=== PATIENT | male | born 1980 | race Hispanic/Latino ===

== ENCOUNTER 2017-12-24 09:29 | Inpatient (IN) | payer SELFPAY ==
[2017-12-24] MEDS ORDERED: Ondansetron ODT 4 MG TAB ONE (09:54)
[2017-12-24] MEDS ORDERED: Acetaminophen 500 MG TAB ONE (09:54)
[2017-12-24 09:59] LABS: Bilirubin Negative (Negative); Blood, Urine Negative (Negative); Clarity CLEAR (Clear); Glucose, Urine (Dipstick) >=1000 mg/dL (Negative); Leukocyte Negative (Negative); Nitrite Negative (Negative); Protein, Urine (Dipstick) Trace mg/dL (Neg-Trace); Specific Gravity, Urine 1.026 (1.002-1.036)
--- NOTE | 2017-12-24 10:08 | RAD ---
SINGLE VIEW OF THE CHEST: Comparison: None. History: Chest pain and fever for three days. FINDINGS: Single view of the chest shows a normal sized cardiomediastinal silhouette. There is no evidence of c onsolidation, mass, or pleural effusion. The bones are unremarkable. IMPRESSION: No evidence of acute cardiopulmonary disease. POS: [facility]
[2017-12-24 10:10] LABS: #Lymphocytes 0.5 thou/uL (1.20-3.40); #Monocytes 0.7 thou/uL (0.11-0.59); #Neutrophils 7.4 thou/uL (1.40-6.50); %Eosinophils 0.1 % (0.0-10.0); %Lymphocytes 5.6 % (21.0-51.0); %Monocytes 7.8 % (0.0-10.0); %Neutrophils 86.5 % (42.0-75.0); Hemoglobin 14.1 g/dL (14.0-18.0); Mean Corpuscular Hemoglobin 32.8 pg (27.0-31.0); Mean Corpuscular Volume 93.9 fL (78.0-98.0); Mean Platelet Volume 8.3 fL (7.4-10.4); Platelet Count 154 thou/uL (130-400); RBC Distribution Width 11.4 % (11.5-14.5); White Blood Cell (WBC) Count 8.5 thou/uL (4.8-10.8)
[2017-12-24 10:28] LABS: ALT (SGPT) 18 U/L (8-55); AST (SGOT) 20 U/L (5-34); Albumin 4.2 g/dL (3.5-5.0); Alkaline Phosphatase 106 U/L (40-150); Anion Gap 17 mmol/L (10-20); BUN (Urea Nitrogen) 4 mg/dL (8.9-20.6); Bilirubin, Total 0.8 mg/dL (0.2-1.2); Calc. Creatinine Clearance 0 mL/min (70-130); Calcium 9.7 mg/dL (7.8-10.44); Carbon Dioxide 24 mmol/L (22-29); Chloride 91 mmol/L (98-107); Estimated GFR-MDRD Greater than 90; Globulin 3.7 g/dL (2.4-3.5); Glucose 395 mg/dL (70-105); Potassium 3.6 mmol/L (3.5-5.1); Protein, Total 7.9 g/dL (6.0-8.3); Sodium 128 mmol/L (136-145)
--- NOTE | 2017-12-24 11:25 | CT ---
CT ABDOMEN AND PELVIS WITH CONTRAST: Date: 12/24/17 HISTORY: Lower abdominal pain. Fever. COMPARISON: CT abdomen and pelvis dated 06/11/11. FINDINGS: Lung bases are clear. No pericardial effusion. Mild bilateral gynecomastia. There is patchy enhancement of the left and right kidney suggesting pyelonephritis. There is also ricci e mild hyperenhancement of the left renal pelvis. There is early contrast excretion in the left renal collecting system. No dilated loops of large or small bowel. The appendix is felt to be visualized and appears normal. Aortoiliac contour is nonaneurysmal. Mild hyperenhancement of the mucosa of the urinary bladder. The pancreas is unremarkable. Liver and spleen are normal. IMPRESSION: 1. Patchy enhancement of both kidneys with mild hyperenhancement of the renal collecting systems sug gesting bilateral pyelonephritis. Recommend correlation with urinalysis. 2. Inferior right pole renal cyst, slightly enlarging from the comparison examination. 3. Normal appendix. POS: [facility]
[2017-12-24] MEDS ORDERED: ISOVUE-370 76%-LOCM 1 ML ONE (11:57)
[2017-12-24 13:55] LABS: Lactic Acid 1.8 mmol/L (0.5-2.2)
[2017-12-24] MEDS ORDERED: Dexamethasone 10 MG/ML VIAL ONE (14:26)
[2017-12-24] MEDS ORDERED: Ketorolac Tromethamine 30 MG/ML VIAL ONE (14:26)
[2017-12-24] MEDS ORDERED: Dicyclomine 20 MG TAB ONE (14:54)
[2017-12-24] MEDS ORDERED: AMOXicillin 250 MG CAP ONE (15:09)
[2017-12-24] MEDS ORDERED: cefTRIAXone\\ROCEPHIN 2 GM VIAL ONE (15:46)
[2017-12-24 16:00] LABS: Amphetamine Not Detected (NotDetected); Barbiturates Screen Not Detected (NotDetected); Benzodiazepine Screen Not Detected (NotDetected); Cocaine Metabolite Screen Not Detected (NotDetected); Medtox Control Line Valid? VALID (VALID); Medtox Reader # READER 1; Methadone Not Detected (NotDetected); Methamphetamine Not Detected (NotDetected); Opiate Screen Detected (NotDetected); Oxycodone Screen Not Detected (NotDetected); Phencyclidine (PCP) Not Detected (NotDetected); THC/Cannabinoid Screen Not Detected (NotDetected); Tricyclic Screen Not Detected (NotDetected)
[2017-12-24] MEDS ORDERED: hydrALAZINE 20 MG/ML VIAL SLOW IVP PRN (16:10)
[2017-12-24] MEDS ORDERED: Ondansetron HCl/PF 4 MG/2 ML Vial IVP PRN (16:10)
[2017-12-24] MEDS ORDERED: Senokot 8.6 MG TAB PO PRN (16:10)
[2017-12-24] MEDS ORDERED: Dextrose 50% Abboject 50 ML SYRINGE SLOW IVP PRN (16:10)
[2017-12-24] MEDS ORDERED: Nitroglycerin 0.4 MG TAB (25 Tab Bottle) SL PRN (16:10)
[2017-12-24] MEDS ORDERED: traMADol HCl 50 MG TAB PO PRN (16:10)
[2017-12-24] MEDS ORDERED: Bisacodyl 5 MG TAB PO PRN (16:10)
[2017-12-24] MEDS ORDERED: Acetaminophen 325 MG TAB PO PRN (16:10)
[2017-12-24] MEDS ORDERED: Diabetic Tussin 200 MG/10 ML UDCUP PO PRN (16:10)
[2017-12-24] MEDS ORDERED: Benzonatate 100 MG CAP PO PRN (16:10)
[2017-12-24] MEDS ORDERED: Calcium Carbonate 500 MG ChewTAB PO PRN (16:10)
[2017-12-24] MEDS ORDERED: cloNIDine 0.1 MG TAB PO PRN (16:10)
[2017-12-24] MEDS ORDERED: Loratadine 10 MG TAB PO PRN (16:10)
[2017-12-24] MEDS ORDERED: Dextrose 5% in Water 1,000 ML IV PRN (16:10)
[2017-12-24] MEDS ORDERED: Mag-Al 1200 mg/1200 mg/30 ML UDCUP PO PRN (16:10)
[2017-12-24 17:22] LABS: Hemoglobin A1c 8.2 % (4.0-6.0)
--- NOTE | 2017-12-24 18:38 | HP ---
DATE OF ADMISSION: 12/24/2017 PRIMARY CARE PHYSICIAN: None. CHIEF COMPLAINT: Fever and abdominal pain. HISTORY OF PRESENT ILLNESS: Mr. Dudley is a 37-year-old male with past medical history of diabetes dena litus who is noncompliant, presented to the ER with the above-mentioned complaints. History is mainl y obtained by the patient himself and case has been discussed with admitting ER physician, Dr. Arvind conti. Electronic medical records have been reviewed. Mr. Dudley reports that he has been feeling ill for the last 3 days. He has been having low-grade lowe r abdominal pain for 3 days which is getting worse. He also noticed fever up to 100.2 or 100.3 at [facility] with associated chills and sweating. He denies any nausea, vomiting or diarrhea. He denies any h ematochezia or melena. He has noticed some foul smell to his urine, but denies any back pain. He de nies any sore throat, rhinorrhea. He has no sick contacts. His and kids are all healthy withou t symptoms. He denies any new medications. Mr. Dudley, otherwise, is in excellent health. He does not take any medication for his diabetes and christopher s not seen a physician in multiple years. He denies any recent bug bites or any boils or sores on hi s skin either. Upon presentation to the emergency room, he was found to be febrile and tachycardic. His T-max was a s high as 100.6. His heart rate ranged anywhere from 104-117. Other than that, he was hemodynamical ly stable. His workup was extensive and thorough. His CBC does not show any elevated WBC count, but he has left shift with neutrophils of 86%. His serum chemistry shows sodium of 128 for blood sugar of 395. Lactic acid x2 was normal. Liver enzymes unremarkable. His urinalysis shows glucosuria and urobilinogen, but otherwise unremarkable. His urine drug screen is only positive for opiates, which he has already received in the emergency room. He underwent a chest x-ray, which did not show any e vidence of pneumonia. A CT scan of the abdomen and pelvis with contrast was done which suggests find ings of bilateral pyelonephritis. He has received 3 liters of IV fluids and remained tachycardic in the ER and is now being admitted for possible sepsis and acute pyelonephritis. Of importance to note is that he actually had throat culture done, which was positive for group A streptococcus. His Infl uenza testing was negative. PAST MEDICAL HISTORY: Diabetes mellitus. PAST SURGICAL HISTORY: Reviewed with the patient and none. PSYCHIATRIC HISTORY: None. No anxiety or depression. SOCIAL HISTORY: He drinks alcohol occasionally. He denies any drug abuse or tobacco abuse. ALLERGIES: No known medication allergies. MEDICATIONS: None. FAMILY HISTORY: Significant for diabetes in his mother. He reports that his mother also had a heart attack. His father 3 months ago and had diabetes and some sort of cancer. Some uncles also have diabetes. REVIEW OF SYSTEMS: A 12-point review of systems is done and is negative except for those mentioned i n the history and physical. LABORATORY DATA: His CBC shows WBCs at 8.5 with 86% neutrophils, hemoglobin 14.1, platelet count of 154. Serum chemistry: Sodium 128, chloride 91, blood sugar 395, lactic acid 2.1 with repeat lactic acid of 1.8. Liver enzymes unremarkable. Urinalysis show glucosuria, otherwise unremarkable. Urine drug screen positive for opiates, otherwise negative. Chest x-ray by my review does not have any ev idence of infiltrate or edema. CT scan of the abdomen and pelvis shows bilateral pyelonephritis. Ot herwise, unremarkable. A 12-lead EKG by my review shows normal sinus rhythm. PHYSICAL EXAMINATION: VITAL SIGNS: Upon presentation, blood pressure 135/82, temperature 99.7, respirations 24, heart rate 106, saturating 96% on room air. GENERAL: He is diaphoretic, otherwise in no acute distress. Appears well-built and well-nourished. Awake, alert, oriented x3. HEENT: Very minimal erythema of the oropharynx is noticed. No exudate otherwise. Head is normoceph alic, atraumatic. Pupils equal, reactive to light and accommodation. NECK: Supple without any lymphadenopathy, JVD or bruit. CHEST: Clear to auscultation without any wheezing, rales, rhonchi. Rhythm is regular without any mu rmur, rubs or gallops. ABDOMEN: Soft, nontender, nondistended, positive bowel sound. There is no CVA tenderness bilaterall y. EXTREMITIES: Free of any cyanosis, clubbing, or edema. NEUROLOGIC: Nonfocal. SKIN: Free of any rashes or bruises. Feel warm and dry to touch. PSYCHIATRIC: Normal affect. IMPRESSION AND PLAN: 1. Sepsis. It is quite puzzling as to what is the clear etiology behind his presentation. The mir ent has reported pyelonephritis on the CT scan with clear urinalysis. He also has a group A Streptoc occal swab positive from his throat without any clinical sign of the infection or any sick contacts. There is a slight possibility that he has a group Streptococcal bacteremia. He might have 2 separat e infections going on. In any case, he will be treated empirically with IV antibiotic. We will add clindamycin for group A Streptococcus and Rocephin for pyelonephritis another urinary pathogens. We will request consultation with Infectious Disease specialist as well. 2. Hyponatremia, likely spurious hyponatremia because of hyperglycemia. We will start him on insuli n sliding scale and collect blood sugars. He is also resuscitated with IV fluids. If this is eviden ce of dehydration. We will monitor sodium numbers closely. 3. Uncontrolled diabetes mellitus. The patient has been counseled. He will be started on insulin s liding scale with frequent Accu-Cheks. We will check a hemoglobin A1c. He will benefit from startin g on oral hypoglycemics with or without insulin prior to discharge. 4. Pyelonephritis. 5. Group A streptococcal pharyngitis. Continue clindamycin. 6. Abdominal pain. We will check his stools for Clostridium difficile and send for culture and path ogen studies as well. The patient denies any risk factors for HIV. 7. Deep venous thrombosis and gastrointestinal prophylaxis. 8. P.r.n. medication orders. DISPOSITION: Mr. Dudley is currently being admitted to telemetry unit for sepsis and pyelonephritis. Estimated length of stay is at least 2-3 midnight. Further management will depend upon his clinical course.
[2017-12-24] MEDS: Clindamycin/D5W 300 MG/50 ML BAG IVPB SCH (21:57)
[2017-12-24] MEDS: Sodium Chloride 0.9% 1,000 ML IV SCH (21:57)
[2017-12-24] MEDS: Famotidine 20 MG TAB PO SCH (21:57)
[2017-12-24] MEDS: HumaLOG 300 UNITS/3 ML VIAL SC PRN (21:58)
[2017-12-24 22:07] VITALS: BMI 25.4
[2017-12-25] MEDS: Clindamycin/D5W 300 MG/50 ML BAG IVPB SCH ×5 (01:23→23:29)
[2017-12-25 05:14] LABS: #Lymphocytes 0.5 thou/uL (1.20-3.40); #Monocytes 0.6 thou/uL (0.11-0.59); #Neutrophils 6.1 thou/uL (1.40-6.50); %Eosinophils 0.1 % (0.0-10.0); %Lymphocytes 7.5 % (21.0-51.0); %Monocytes 8.1 % (0.0-10.0); %Neutrophils 84.3 % (42.0-75.0); Hemoglobin 13.6 g/dL (14.0-18.0); Mean Corpuscular HGB CONC 36.4 g/dL (32.0-36.0); Mean Corpuscular Hemoglobin 33.8 pg (27.0-31.0); Mean Corpuscular Volume 92.9 fL (78.0-98.0); Mean Platelet Volume 8.3 fL (7.4-10.4); Platelet Count 136 thou/uL (130-400); RBC Distribution Width 11.2 % (11.5-14.5); Red Blood Cell (RBC) Count 4.02 mill/uL (4.70-6.10); White Blood Cell (WBC) Count 7.2 thou/uL (4.8-10.8)
[2017-12-25 05:30] LABS: Anion Gap 15 mmol/L (10-20); BUN (Urea Nitrogen) 10 mg/dL (8.9-20.6); Calc. Creatinine Clearance 147 mL/min (70-130); Carbon Dioxide 23 mmol/L (22-29); Chloride 100 mmol/L (98-107); Estimated GFR-MDRD Greater than 90; Glucose 286 mg/dL (70-105); Potassium 3.8 mmol/L (3.5-5.1); Sodium 134 mmol/L (136-145)
[2017-12-25] MEDS ORDERED: Vancomycin HCl 1 GM in Premix Bag 1 BAG IVPB SCH (07:00)
[2017-12-25] MEDS: Sodium Chloride 0.9% 1,000 ML IV SCH ×3 (07:04→20:22)
[2017-12-25] MEDS: Famotidine 20 MG TAB PO SCH ×2 (08:05→20:22)
[2017-12-25] MEDS: cefTRIAXone\\ROCEPHIN 1 GM in Sodium Chloride 0.9% 100 ML IVPB SCH (08:06)
[2017-12-25] MEDS: Saccharomyces boulardii 250 MG CAP PO SCH (08:06)
[2017-12-25] MEDS: Enoxaparin Sodium 40 MG/0.4 ML SYRINGE SC SCH (08:07)
[2017-12-25] MEDS: HumaLOG 300 UNITS/3 ML VIAL SC PRN ×4 (08:08→20:23)
[2017-12-25] MEDS: Insulin NPH/Reg Insulin Hm 300 UNITS/3 ML VIAL SC SCH ×2 (12:39→18:19)
--- NOTE | 2017-12-25 13:20 | PDOC.PN ---
- Subjective Encounter Start Date: 12/25/17 Encounter Start Time: 13:17 Subjective: feels much better. good appetite,ambulatory -: no more AP.no N?V?D.no CP/SOB/Cough - Objective MAR Reviewed: Yes Vital Signs & Weight: Vital Signs (12 hours) Temp Pulse Resp BP BP Pulse Ox 12/25/17 12:16 99.1 F 113 H 16 104/55 L 97 12/25/17 08:02 98.1 F 91 16 106/70 98 12/25/17 08:00 98.1 F 91 16 98 12/25/17 03:30 97.7 F 80 12 122/81 100 Weight Weight 148 lb 3.2 oz Result Diagrams: 12/25/17 04:32 12/25/17 04:32 Additional Labs: Accuchecks 12/25/17 12/25/17 12/24/17 10:54 05:24 20:36 POC Glucose 285 H 328 H 450 H Microbiology 12/25/17 01:40 Stool C. difficile GDH Antigen & Toxins - Final 12/24/17 12:45 Tonsil - Pending Group A Streptococcus Screen (MARYAM) - Final 12/24/17 12:45 Nasopharyngeal swab Influenza Types A,B Direct EIA - Final 12/24/17 10:01 Venous blood - Left Arm Blood Culture - Preliminary Gram Negative Demetri 12/24/17 09:57 Venous blood - Right Arm Blood Culture - Preliminary Escherichia coli 12/24/17 09:38 Urine voided Urine Culture - Preliminary Presumptive Escherichia coli Phys Exam - Physical Examination Constitutional: NAD HEENT: PERRLA, moist MMs, sclera anicteric, oral pharynx no lesions Neck: no nodes, no JVD, supple, full ROM Respiratory: no wheezing, no rales, no rhonchi, clear to auscultation bilateral Cardiovascular: RRR, no significant murmur, no rub Gastrointestinal: soft, non-tender, no distention Musculoskeletal: no edema, pulses present Neurological: non-focal, normal sensation, moves all 4 limbs Psychiatric: normal affect, A&O x 3 Skin: no rash Dx/Plan (1) Sepsis Code(s): A41.9 - SEPSIS, UNSPECIFIED ORGANISM Status: Acute (2) E coli bacteremia Code(s): R78.81 - BACTEREMIA Status: Acute (3) E. coli UTI Code(s): N39.0 - URINARY TRACT INFECTION, SITE NOT SPECIFIED; B96.20 - UNSP ESCHERICHIA COLI THE CAUSE OF DISEASES CLASSD ELSWHR Status: Acute (4) Group A streptococcal infection Code(s): B95.0 - STREPTOCOCCUS, GROUP A, CAUSING DISEASES CLASSD ELSWHR Status : Acute (5) Hyponatremia Code(s): E87.1 - HYPO-OSMOLALITY AND HYPONATREMIA Status: Acute Comment: improving with improvement of hyperglycemia (6) Non-compliance Code(s): Z91.19 - PATIENT'S NONCOMPLIANCE W OTH MEDICAL TREATMENT AND REGIMEN Status: Chronic (7) Uncontrolled type 2 diabetes mellitus Code(s): E11.65 - TYPE 2 DIABETES MELLITUS WITH HYPERGLYCEMIA Status: Chronic 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 -: Educated extensively about the need for Diabetes & med compliance * .will start on Insulin and Glimiperide and monitor response * Ok to transfer to medical. * am labs Review of Systems - Review of Systems Constitutional: negative: fever, chills, sweats, weakness, malaise, other ENT: negative: Ear Pain, Ear Discharge, Nose Pain, Nose Discharge, Nose Congestion, Mouth Pain, Mouth Swelling, Throat Pain, Throat Swelling, Other Respiratory: negative: Cough, Dry, Shortness of Breath, Hemoptysis, SOB with Excertion, Pleuritic Pain, Sputum, Wheezing Cardiovascular: negative: chest pain, palpitations, orthopnea, paroxysmal nocturnal dyspnea, edema, light headedness, other Gastrointestinal: negative: Nausea, Vomiting, Abdominal Pain, Diarrhea, Constipation, Melena, Hematochezia, Other Genitourinary: negative: Dysuria, Frequency, Incontinence, Hematuria, Retention , Other Musculoskeletal: negative: Neck Pain, Shoulder Pain, Arm Pain, Back Pain, Hand Pain, Leg Pain, Foot Pain, Other Skin: negative: Rash, Lesions, Kian, Bruising, Other Neurological: negative: Weakness, Numbness, Incoordination, Change in Speech, Confusion, Seizures, Other - Medications/Allergies Allergies/Adverse Reactions: Allergies Allergy/AdvReac Type Severity Reaction Status Date / Time No Known Allergies Allergy Verified 12/24/17 20:15 Medications: Current Medications Acetaminophen (Tylenol) 650 mg PO Q4H PRN PRN Reason: Headache/Fever or Pain Hydrocodone Bitart/Acetaminophen ([place] 5/325) 1 tab PO Q4H PRN PRN Reason: Moderate Pain (4-6) Al Hydroxide/Mg Hydroxide (Maalox) 30 ml PO Q6H PRN PRN Reason: Heartburn or Indigestion Benzonatate (Tessalon) 100 mg PO Q4H PRN PRN Reason: Cough Bisacodyl (Dulcolax) 10 mg PO DAILYPRN PRN PRN Reason: Constipation Calcium Carbonate (Tums) 1,000 mg PO Q4H PRN PRN Reason: Heartburn or Indigestion Clindamycin Phosphate/Dextrose (Cleocin) 300 mg IVPB Q6HR [facility] Last Admin: 12/25/17 12:20 Dose: 300 mg Clonidine (Catapres) 0.1 mg PO Q4H PRN PRN Reason: Systolic BP > 160 Dextrose/Water (Dextrose 50%) 25 gm SLOW IVP PRN PRN PRN Reason: Hypoglycemia Enoxaparin Sodium (Lovenox) 40 mg SC 0900 [facility] Last Admin: 12/25/17 08:07 Dose: Not Given Famotidine (Pepcid) 20 mg PO BID [facility] Last Admin: 12/25/17 08:05 Dose: 20 mg Glimepiride (Amaryl) 2 mg PO QAM-[facility] Glucagon (Glucagon) 1 mg IM PRN PRN PRN Reason: Hypoglycemia Guaifenesin (Robitussin Sf) 200 mg PO Q4H PRN PRN Reason: Cough Hydralazine HCl (Apresoline) 10 mg SLOW IVP Q4H PRN PRN Reason: Systolic BP > 170 Dextrose/Water (D5w) 1,000 mls @ 0 mls/hr IV .Q0M PRN; As Directed PRN Reason: Hypoglycemia Ceftriaxone Sodium 1 gm/ (Sodium Chloride) 100 mls @ 200 mls/hr IVPB Q24HR [facility] Last Admin: 12/25/17 08:06 Dose: 100 mls Sodium Chloride (Normal Saline 0.9%) 1,000 mls @ 100 mls/hr IV .Q10H [facility] Last Admin: 12/25/17 08:07 Dose: 1,000 mls Insulin Human Isoph/Insulin Regular (Humulin 70/30) 10 units SC [facility] Last Admin: 12/25/17 12:39 Dose: 10 unit Insulin Human Lispro (Humalog) 0 units SC .MODERATE SLIDING SC PRN PRN Reason: Moderate Correctional Scale Last Admin: 12/25/17 12:38 Dose: 6 unit Insulin Human Lispro (Humalog) 0 units SC .BEDTIME SLIDING SC PRN PRN Reason: Bedtime Correctional Scale Last Admin: 12/24/17 21:58 Dose: 5 unit Loratadine (Claritin) 10 mg PO DAILYPRN PRN PRN Reason: Sinus Symptoms Nitroglycerin (Nitrostat) 0.4 mg SL Q5MIN PRN PRN Reason: Chest Pain Ondansetron HCl (Zofran) 4 mg IVP Q6H PRN PRN Reason: Nausea/Vomiting Saccharomyces Boulardii (Florastor) 250 mg PO DAILY [facility] Last Admin: 12/25/17 08:06 Dose: 250 mg Senna (Senokot) 2 tab PO HSPRN PRN PRN Reason: Constipation Sodium Chloride (Flush - Normal Saline) 10 ml IVF Q12HR [facility] Last Admin: 12/25/17 09:37 Dose: Not Given Sodium Chloride (Flush - Normal Saline) 10 ml IVF PRN PRN PRN Reason: Saline Flush Tramadol HCl (Ultram) 50 mg PO Q4H PRN PRN Reason: Moderate Pain (4-6)
[2017-12-26] MEDS: HYDROcodone/Acetaminophen 5/325 mg Tablet PO PRN ×2 (03:39→20:29)
[2017-12-26] MEDS: Clindamycin/D5W 300 MG/50 ML BAG IVPB SCH ×2 (05:46→12:46)
[2017-12-26] MEDS: HumaLOG 300 UNITS/3 ML VIAL SC PRN ×2 (05:48→12:40)
[2017-12-26] MEDS: cefTRIAXone\\ROCEPHIN 1 GM in Sodium Chloride 0.9% 100 ML IVPB SCH (06:25)
[2017-12-26] MEDS: Insulin NPH/Reg Insulin Hm 300 UNITS/3 ML VIAL SC SCH ×3 (08:57→16:49)
[2017-12-26] MEDS: Saccharomyces boulardii 250 MG CAP PO SCH (08:58)
[2017-12-26] MEDS: Famotidine 20 MG TAB PO SCH ×2 (08:58→20:29)
[2017-12-26] MEDS: Enoxaparin Sodium 40 MG/0.4 ML SYRINGE SC SCH (08:58)
[2017-12-26] MEDS: Glimepiride 2 MG TAB PO SCH (10:05)
[2017-12-26] MEDS: Sodium Chloride 0.9% 1,000 ML IV SCH (10:07)
[2017-12-26 10:55] LABS: HIV (1/2) Antibody/Antigen Non-Reactive (NonReactive); HIV 1/2 INDEX 0.08 S/CO (<1.00)
[2017-12-26] MEDS ORDERED: Clindamycin/D5W 300 MG in Premix Bag 1 BAG IVPB SCH (12:00)
--- NOTE | 2017-12-26 13:43 | PDOC.PN ---
- Subjective Encounter Start Date: 12/26/17 Encounter Start Time: 13:42 Subjective: feels better but somewhat dizzy.no F/C/Cough/SOB - Objective MAR Reviewed: Yes Vital Signs & Weight: Vital Signs (12 hours) Temp Pulse Resp BP Pulse Ox 12/26/17 08:00 99.3 F 100 20 97 12/26/17 07:13 99.3 F 100 20 134/84 97 Weight Weight 148 lb 3.2 oz I&O: 12/25/17 12/26/17 12/27/17 06:59 06:59 06:59 Intake Total 3113 Balance 3113 Result Diagrams: 12/25/17 04:32 12/25/17 04:32 Additional Labs: Accuchecks 12/26/17 12/26/17 12/25/17 11:15 05:44 19:32 POC Glucose 270 H 171 H 308 H 12/25/17 16:46 POC Glucose 339 H Microbiology 12/25/17 01:40 Stool C. difficile GDH Antigen & Toxins - Final 12/24/17 12:45 Tonsil - Pending Group A Streptococcus Screen (MARYAM) - Final 12/24/17 12:45 Nasopharyngeal swab Influenza Types A,B Direct EIA - Final 12/24/17 10:01 Venous blood - Left Arm Blood Culture - Preliminary Escherichia coli 12/24/17 09:57 Venous blood - Right Arm Blood Culture - Preliminary Escherichia coli 12/24/17 09:38 Urine voided Urine Culture - Preliminary Escherichia coli labs reviewed Phys Exam - Physical Examination Constitutional: NAD HEENT: PERRLA, moist MMs, sclera anicteric, oral pharynx no lesions Neck: no nodes, no JVD, supple, full ROM Respiratory: no wheezing, no rales, no rhonchi, clear to auscultation bilateral Cardiovascular: RRR, no significant murmur, no rub Gastrointestinal: soft, non-tender, no distention, positive bowel sounds Musculoskeletal: no edema, pulses present Neurological: non-focal, normal sensation, moves all 4 limbs Psychiatric: normal affect, A&O x 3 Skin: no rash Dx/Plan (1) Sepsis Code(s): A41.9 - SEPSIS, UNSPECIFIED ORGANISM Status: Acute (2) E coli bacteremia Code(s): R78.81 - BACTEREMIA Status: Acute (3) E. coli UTI Code(s): N39.0 - URINARY TRACT INFECTION, SITE NOT SPECIFIED; B96.20 - UNSP ESCHERICHIA COLI THE CAUSE OF DISEASES CLASSD ELSWHR Status: Acute (4) Group A streptococcal infection Code(s): B95.0 - STREPTOCOCCUS, GROUP A, CAUSING DISEASES CLASSD ELSWHR Status : Acute (5) Hyponatremia Code(s): E87.1 - HYPO-OSMOLALITY AND HYPONATREMIA Status: Acute Comment: improving with improvement of hyperglycemia (6) Non-compliance Code(s): Z91.19 - PATIENT'S NONCOMPLIANCE W OTH MEDICAL TREATMENT AND REGIMEN Status: Chronic (7) Uncontrolled type 2 diabetes mellitus Code(s): E11.65 - TYPE 2 DIABETES MELLITUS WITH HYPERGLYCEMIA Status: Chronic Qualifiers: 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 -: cont Rocephin for E.coli & Clindamycin for GAS.ID consulted -: blood sugars still high.cont 70/30 ,SSI,Glimeperide -: am labs. -: will check HIV given severity of infection * . Review of Systems - Review of Systems Constitutional: weakness. negative: fever, chills, sweats, malaise, other Respiratory: negative: Cough, Dry, Shortness of Breath, Hemoptysis, SOB with Excertion, Pleuritic Pain, Sputum, Wheezing Cardiovascular: light headedness. negative: chest pain, palpitations, orthopnea , paroxysmal nocturnal dyspnea, edema, other Gastrointestinal: negative: Nausea, Vomiting, Abdominal Pain, Diarrhea, Constipation, Melena, Hematochezia, Other Genitourinary: negative: Dysuria, Frequency, Incontinence, Hematuria, Retention , Other Musculoskeletal: negative: Neck Pain, Shoulder Pain, Arm Pain, Back Pain, Hand Pain, Leg Pain, Foot Pain, Other Skin: negative: Rash, Lesions, Kian, Bruising, Other Neurological: negative: Weakness, Numbness, Incoordination, Change in Speech, Confusion, Seizures, Other - Medications/Allergies Allergies/Adverse Reactions: Allergies Allergy/AdvReac Type Severity Reaction Status Date / Time No Known Allergies Allergy Verified 12/24/17 20:15 Medications: Current Medications Acetaminophen (Tylenol) 650 mg PO Q4H PRN PRN Reason: Headache/Fever or Pain Last Admin: 12/25/17 23:36 Dose: 650 mg Hydrocodone Bitart/Acetaminophen ([place] 5/325) 1 tab PO Q4H PRN PRN Reason: Moderate Pain (4-6) Last Admin: 12/26/17 03:39 Dose: 1 tab Al Hydroxide/Mg Hydroxide (Maalox) 30 ml PO Q6H PRN PRN Reason: Heartburn or Indigestion Benzonatate (Tessalon) 100 mg PO Q4H PRN PRN Reason: Cough Bisacodyl (Dulcolax) 10 mg PO DAILYPRN PRN PRN Reason: Constipation Calcium Carbonate (Tums) 1,000 mg PO Q4H PRN PRN Reason: Heartburn or Indigestion Clonidine (Catapres) 0.1 mg PO Q4H PRN PRN Reason: Systolic BP > 160 Dextrose/Water (Dextrose 50%) 25 gm SLOW IVP PRN PRN PRN Reason: Hypoglycemia Enoxaparin Sodium (Lovenox) 40 mg SC 0900 [facility] Last Admin: 12/26/17 08:58 Dose: 40 mg Famotidine (Pepcid) 20 mg PO BID [facility] Last Admin: 12/26/17 08:58 Dose: 20 mg Glimepiride (Amaryl) 2 mg PO QAM-WM [facility] Last Admin: 12/26/17 10:05 Dose: 2 mg Glucagon (Glucagon) 1 mg IM PRN PRN PRN Reason: Hypoglycemia Guaifenesin (Robitussin Sf) 200 mg PO Q4H PRN PRN Reason: Cough Hydralazine HCl (Apresoline) 10 mg SLOW IVP Q4H PRN PRN Reason: Systolic BP > 170 Dextrose/Water (D5w) 1,000 mls @ 0 mls/hr IV .Q0M PRN; As Directed PRN Reason: Hypoglycemia Ceftriaxone Sodium 1 gm/ (Sodium Chloride) 100 mls @ 200 mls/hr IVPB Q24HR [facility] Last Admin: 12/26/17 06:25 Dose: 100 mls Clindamycin Phosphate/Dextrose (300 mg/ Device) 50 mls @ 100 mls/hr IVPB Q6HR [facility] Last Admin: 12/26/17 12:39 Dose: 50 mls Insulin Human Isoph/Insulin Regular (Humulin 70/30) 10 units SC AC [facility] Last Admin: 12/26/17 12:39 Dose: 10 unit Insulin Human Lispro (Humalog) 0 units SC .MODERATE SLIDING SC PRN PRN Reason: Moderate Correctional Scale Last Admin: 12/26/17 12:40 Dose: 6 unit Insulin Human Lispro (Humalog) 0 units SC .BEDTIME SLIDING SC PRN PRN Reason: Bedtime Correctional Scale Last Admin: 12/25/17 20:23 Dose: 4 unit Loratadine (Claritin) 10 mg PO DAILYPRN PRN PRN Reason: Sinus Symptoms Nitroglycerin (Nitrostat) 0.4 mg SL Q5MIN PRN PRN Reason: Chest Pain Ondansetron HCl (Zofran) 4 mg IVP Q6H PRN PRN Reason: Nausea/Vomiting Saccharomyces Boulardii (Florastor) 250 mg PO DAILY [facility] Last Admin: 12/26/17 08:58 Dose: 250 mg Senna (Senokot) 2 tab PO HSPRN PRN PRN Reason: Constipation Sodium Chloride (Flush - Normal Saline) 10 ml IVF Q12HR [facility] Last Admin: 12/26/17 08:59 Dose: Not Given Sodium Chloride (Flush - Normal Saline) 10 ml IVF PRN PRN PRN Reason: Saline Flush Tramadol HCl (Ultram) 50 mg PO Q4H PRN PRN Reason: Moderate Pain (4-6)
[2017-12-26 15:44] LABS: HBCM Index 0.09 S/CO (0-0.79); HBSAg Index 0.17 S/CO (0-0.99); Hep A IgM AB Non-Reactive (NonReactive); Hep A IgM S/CO 0.14 S/CO (0-0.79); Hep B Surf Ag Non-Reactive S/CO (NonReactive); Hep C IgG Ab Non-Reactive (NonReactive); Hep C Index 0.23 S/CO (0-0.79); Hepatitis B Core IGM Abs Non-Reactive (NonReactive)
[2017-12-26] MEDS: Ciprofloxacin 500 MG TAB PO SCH (20:29)
--- NOTE | 2017-12-26 21:17 | CON ---
DATE OF CONSULTATION: 12/26/2017 REASON FOR CONSULTATION: Fever, urinary symptoms. HISTORY OF PRESENT ILLNESS: A 37-year-old who has a history of urinary tract infection about 9 years before reportedly admitted to the [facility] at that time and since then with no other clinical problems other than type 2 diabetes mellitus, which is managed at a local clinic in [place]. The patient developed fever with abdominal pain, which he describes across the upper abdominal segments radiating towards the back associated with dysuria 3 days prior to admission. Initial findings included a BP 130/80, pulse 106, O2 sat 96 %, temperature 99.7. He was diaphoretic, but in no acute distress. The examination was fairly normal. Initial findings also included white cell count 8.5, hemoglobin 14, platelets 154 with 86% neutrophils and some hyponatremia, otherwise fairly unremarkable chemistry except for elevated glucose. Hemoglobin A1c 8.2. Lactic acid was 2.1. Urinalysis was remarkable for a negative urine nitrite and negative leukocyte esterase from 12/24/2017. He was started on broad spectrum antimicrobial coverage with ceftriaxone and is feeling better now. No headaches, visual symptoms, sore throat, odynophagia, dysphagia, no cough or sputum production or chest pain, no back pain, no joint symptoms. No neurological symptoms. PAST MEDICAL HISTORY: Type 2 diabetes, prior episode of urinary infection 9 years ago, treated at [facility]. 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 Never a smoker. Lives in [place] with . ALLERGIES: None. CURRENT MEDICATIONS: Rocephin, p.r.n. medications, insulin, glucagon. FAMILY HISTORY: Diabetes type 2, coronary artery disease. PHYSICAL EXAMINATION: VITAL SIGNS: T-max 99.1-99.3, blood pressure 130/84, pulse 100, respirations 20 , O2 saturation 97%. GENERAL: Appears in no distress. SKIN: Normal. No lymphadenopathy. HEENT: Ocular movements conjugate. Oral cavity normal. NECK: Supple. LUNGS: With symmetric clear breath sounds. HEART: S1, S2, regular rate. ABDOMEN: Soft with no tenderness any longer. No bladder distention. Rectal examination showed a fairly normal prostate gland without tenderness. GENITAL: Examination appeared normal otherwise. EXTREMITIES: No joint inflammatory process. Pulses are normal. NEUROLOGIC: Nonfocal including cognitive function. LABORATORY DATA: The labs have been reviewed above. The white cell count is at 7.2, hemoglobin 13.6 and 84% neutrophils. HIV serology nonreactive. Blood culture with E. coli in 2 out of 2 sets fairly broad susceptibility profile. The same organism isolated from urinary tract. C. diff antigen toxin negative. Reports include abdomen and pelvis CT done on 12/24/2017 which showed patchy enhancement of both kidneys, hyperenhancement of renal collecting systems, normal appendix. ASSESSMENT: 1. Fever with dysuria, abdominal pain. 2. Abnormal CT findings consistent with pyelonephritis. 3. Fairly normal urinalysis. DISCUSSION: The remarkable finding in this case is the absence of significant urinalysis changes in the face of overwhelming evidence of pyelonephritis. No clinical evidence of prostatitis. Cases of pyelonephritis associated with a normal urinalysis have been reported in literature and the literature particularly in children may be related to rapid passage of bacteria from the bladder towards the upper tract may be in association with reflux before the actual cystitis may develop which would lead to the absence of changes in the urinalysis. This I would call a case of hyperacute pyelonephritis from rapid passage of urinary tract pathogens to the kidneys. He may have again as mentioned reflux disease. Urethral abnormalities with a stricture this appears to be less likely, prostatitis is unlikely. Switch him to oral quinolone and consider discharge planning. Treat for 2 weeks. May need a Urology consultation in view of the unusual aspect of this case, particularly the possibility of reflux since I do not believe that prostate is contributing to his presentation. JOSEE
--- NOTE | 2017-12-27 00:38 | CON ---
DATE OF CONSULTATION: 12/26/2017 REFERRING PHYSICIAN: Dr. Santa regarding urinary tract infection. HISTORY OF PRESENT ILLNESS: Mr. Dudley is a 37-year-old male, Italian speaking; however, somewhat limited, is at bedside providing further history. The patient is admitted via the Hospitalist, on 12/24/2017 due to sensation of malaise, with lower abdominal discomfort, low-grade fever of 100.2. Per review of records, there was evidence of foul-smelling urine and some dysuria, denied flank pain. He denies history of gross hematuria, or sensation of incomplete void. The patient was provided vancomycin and Rocephin in the ER for presumed sepsis, it is unclear to me if urinalysis was obtained after antibiotics were provided. Nevertheless, blood culture and urine culture does demonstrate E. coli. Urine culture demonstrated 10,000-25,000 E. coli, pansensitive except to ampicillin. He has been afebrile since admission, currently 99.3. He is resting comfortably. He states that he has been urinating frequently and denies dysuria, gross hematuria, sensation of incomplete void, history of STDs. The patient does have multiple body tattoos, denies illicit drug use. 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 When I inquired regarding medication treatment for his diabetes, he states that he does not take medication, relates the patient has been noncompliant for quite some time. Denies prior history of UTI. PAST MEDICAL HISTORY: Diabetes, noncompliant. PAST SURGICAL HISTORY: Negative. PSYCHIATRIC HISTORY: Negative. SOCIAL HISTORY: Negative. ALLERGIES: No known drug allergies. CURRENT MEDICATIONS: Include glucagon, hydralazine, Humalog, Claritin, Nitrostat, Zofran, Senokot, tramadol, ciprofloxacin 500 mg 1 p.o. b.i.d. PHYSICAL EXAMINATION: VITAL SIGNS: Vital signs are stable, 99.3, 120, 97, 134/84. He is voiding in a urinal. Per my request, postvoid residual was just obtained demonstrating no significant postvoid residual of concern. GENERAL: The patient appears to be comfortable, alert and oriented with multiple body tattoos. HEENT: Grossly unremarkable. HEART: Regular. LUNGS: Clear. ABDOMEN: Soft. No CVA tenderness is appreciated. No suprapubic tenderness. GENITOURINARY: Demonstrates uncircumcised phallus, meatus is grossly unremarkable. I do not see any obvious lesions of concern. Testes are descended with no evidence of intratesticular mass. KAM is deferred due to active UTI. EXTREMITIES: No cyanosis, clubbing or edema. PERTINENT LABORATORY DATA AND IMAGING: White count is 7.2, admitting white count is 8.5, hemoglobin 13.6, platelet 136, 84 segs. Blood sugars have been running 328-270. UA is yellow, greater than 1000 glucose, 2+ urobilinogen, otherwise unremarkable. Toxicology positive for opiates, otherwise unremarkable , consistent with a medication provided in the ER. HIV is negative. Urine culture and blood culture, positive for E. coli. CT of the abdomen and pelvis on 12/24/2017 with contrast demonstrates patchy enhancement of bilateral kidneys with mild hyperenhancement suggesting bilateral pyelonephritis. There is no evidence of hydronephrosis. Incidental inferior right lower pole renal cyst. Bladder is not significantly distended. CT on 08/2010 demonstrates bladder is distended to the level of the mid SI joint per my review, fatty liver, severe pancreatitis, bilateral pleural effusion. IMPRESSION AND PLAN: 1. Mr. Dudley is a 37-year-old male, with history of diabetes, noncompliant. His admitting hemoglobin A1c on this admission is 8.2. 2. Escherichia coli bacteremia, urinary tract infection, clinically stable. The patient has no significant postvoid residual of concern. It would be prudent to initiate Flomax to optimize outlet function. His UA suggests as well as hemoglobin A1c regarding poorly controlled diabetes. Of note, this patient is not a candidate for medication such as Farxiga, sodium-glucose transport inhibitor as this will exacerbate his recurrent UTI symptoms. 3. Glucosuria, medications that will result in glucosuria is a contraindicated in this patient. I do recommend case management consult, as he will require assistance regarding PCP referral, outpatient medical treatment for diabetes. A long discussion with patient and regarding implications of poorly controlled diabetes, genital comorbidity including recurrent UTI. They verbalized understanding. We will follow with you on this admission. Outpatient elective cystoscopy is advised to rule out occult pathology. MTDD
[2017-12-27] MEDS: Ciprofloxacin 500 MG TAB PO SCH (05:43)
[2017-12-27] MEDS: HYDROcodone/Acetaminophen 5/325 mg Tablet PO PRN (05:45)
--- NOTE | 2017-12-27 08:22 | PRG ---
DATE OF SERVICE: 12/27/2017 SUBJECTIVE: The patient without complaints. PHYSICAL EXAMINATION: VITAL SIGNS: Stable, afebrile. T-max 99.3. ABDOMEN: Soft, nontender, nondistended. No suprapubic tenderness. No CVA tenderness. No new labs. The patient did not have leukocytosis yesterday. Final urine culture and blood culture demonstrates E. coli, currently on ciprofloxacin. IMPRESSION AND PLAN: Mr. Dudley is a 37-year-old male admitted for Escherichia coli urosepsis. The patient is afebrile defervesced with no significant evidence of leukocytosis. From a urologic perspective, the patient may be discharged with quinolones for 14 days as he has a positive blood culture. Recommend discharge with Flomax. As previous, I do recommend the patient is established with primary, case management assist as the patient needs medication for diabetes. Again, contraindication for medication such as Farxiga that will increase urine glucose. I informed him to give my office a call for elective followup. appt in chart Elective cystoscopy is warranted. Urology will sign off. Call if any questions or concerns. JOSEE
[2017-12-27] MEDS: Insulin NPH/Reg Insulin Hm 300 UNITS/3 ML VIAL SC SCH ×2 (08:38→12:16)
[2017-12-27] MEDS: Enoxaparin Sodium 40 MG/0.4 ML SYRINGE SC SCH (08:39)
[2017-12-27] MEDS: Famotidine 20 MG TAB PO SCH (08:39)
[2017-12-27] MEDS: Glimepiride 2 MG TAB PO SCH (08:39)
[2017-12-27] MEDS: Saccharomyces boulardii 250 MG CAP PO SCH (08:40)
[2017-12-27] MEDS ORDERED: Tamsulosin HCl 0.4 MG CAP PO SCH (09:00)
[2017-12-27 12:00] VITALS: BP 157/98; TEMP 98.8
--- NOTE | 2017-12-27 14:18 | DIS ---
DATE OF ADMISSION: 12/24/2017 DATE OF DISCHARGE: 12/27/2017 CONDITION AT THE TIME OF DISCHARGE: Stable and improved. DISCHARGE DISPOSITION: Home. PRIMARY CARE PHYSICIAN: None. The patient is instructed to follow up with [facility] in [place]. DISCHARGE DIAGNOSES: 1. Escherichia coli urinary tract infection and bacteremia. 2. Bilateral pyelonephritis. 3. Uncontrolled diabetes mellitus with noncompliance in the past. 4. History of urinary tract infection 9 years ago. DISCHARGE MEDICATIONS: Novolin 70/30 at 15 units b.i.d., glimepiride 2 mg daily, ciprofloxacin 500 m g p.o. b.i.d. for 10 more days. INHOUSE CONSULTATIONS: 1. Infectious Disease, Dr. Santa. 2. Urology, Dr. Teri Taylor. PROCEDURES DONE IN THE HOSPITAL: CT scan of the abdomen and pelvis upon presentation, which showed b ilateral pyelonephritis without any stones or hydronephrosis. HISTORY OF PRESENT ILLNESS: Mr. Dudley is a pleasant 37-year-old male with known history of diabetes m ellitus, who has been noncompliant and does not take any medications, presented to the emergency room with complaints of fever and abdominal pain. In the emergency room, he was found to be febrile, tac hycardic, and diaphoretic. He had leukocytosis upon presentation and hyperglycemia. A CT scan was d one in the emergency room, which showed bilateral pyelonephritis. His urinalysis was surprisingly un remarkable. He was given empiric IV antibiotics and IV fluids and was admitted for further care. He also tested positive for group A streptococcal throat swab. Please see admission history and physical for further details. HOSPITAL COURSE: The patient had great improvement on empiric antibiotics. His culture results came back positive 2/2 E. coli in the blood and the same organism in the urine. His Clostridium difficil e antigen and toxin were negative. Influenza testing was negative. Infectious Disease was consulted because of the constellation of pyelonephritis without any evidence infection in the urine. Dr. Jong ferguson saw the patient and agreed with the current management and added ciprofloxacin and oral for discha rge. He recommended consultation with Urology with the possibility of urinary reflux causing of fast pyelonephritis. Dr. Taylor also saw the patient and recommended outpatient followup for electi ve cystoscopy. Antibiotics were recommended as well. By the time of discharge, the patient was hemodynamically stable. He was started on insulin and glim epiride in the hospital with improvement in his blood sugars. His serum hemoglobin A1c was checked a nd was elevated to 8.2. Extensive education was provided to him about the need for medication compli ance. Diabetic education by the dietitian was also done and the patient received his glucometer test strips, lancets, and all of his prescriptions prior to his discharge by the [facility]. The patient is uninsured. He is given information to follow with primary care physician at [facility]. All the discharge plan was discussed with the patient and his family and they verbalized understandin g. All questions were answered. He is given an appointment with Dr. Taylor on 01/12/2018 at 1:30 p.m. for followup as well. The patient is instructed to keep his appointments and be compliant with his medications and at this kevin e, he appears complacent. Total time spent 32 minutes.
== END 2017-12-27 12:59 | disposition home or self-care (01) | DRG 872 ==
LOC: ERS 09:29 → 2NO 17:53 → T4-B 12-25 16:07
PROVIDERS: ADMIT Internal Medicine; ATTEND Internal Medicine
DX: A41.51 Sepsis due to Escherichia coli [E. coli] (principal); N12 Tubulo-interstitial nephritis, not specified as acute or chronic; E87.1 Hypo-osmolality and hyponatremia; B96.20 Unspecified Escherichia coli [E. coli] as the cause of diseases classified elsewhere; E11.65 Type 2 diabetes mellitus with hyperglycemia; J02.0 Streptococcal pharyngitis; Z91.14 Patient's other noncompliance with medication regimen; Z83.3 Family history of diabetes mellitus
CPT/HCPCS: 36415; 36416; 71045; 74177; 80048; 80053; 80074; 80306; 81003; 83036; 83605; 85025; 87040; 87077; 87086; 87149; 87186; 87324; 87389; 87430; 87449; 87804; 93005; 94760; 96361; 96365; 96367; 96375; A4216; J0696; J1100; J1650; J1885; J2405; J3370; J3490; J7050; Q0162

== ENCOUNTER 2020-06-02 13:29 | Inpatient (IN) | payer SELFPAY ==
[2020-06-02] MEDS ORDERED: cefTRIAXone\\ROCEPHIN 2 GM VIAL ONE (14:03)
[2020-06-02] MEDS ORDERED: HYDROcodone/Acetaminophen 10/325 mg Tablet ONE (14:03)
[2020-06-02 14:28] LABS: #Lymphocytes 0.8 thou/uL (1.20-3.40); #Monocytes 1.6 thou/uL (0.11-0.59); #Neutrophils 10.5 thou/uL (1.40-6.50); %Basophils 0.2 % (0.0-1.0); %Eosinophils 0.1 % (0.0-10.0); %Neutrophils 81.6 % (42.0-75.0); Hemoglobin 13.8 g/dL (14.0-18.0); Mean Corpuscular HGB CONC 34.7 g/dL (32.0-36.0); Mean Corpuscular Hemoglobin 32.7 pg (27.0-31.0); Mean Corpuscular Volume 94.3 fL (78.0-98.0); Mean Platelet Volume 8.2 fL (7.4-10.4); Platelet Count 165 thou/uL (130-400); RBC Distribution Width 11.2 % (11.5-14.5); Red Blood Cell (RBC) Count 4.22 mill/uL (4.70-6.10); White Blood Cell (WBC) Count 12.9 thou/uL (4.8-10.8)
[2020-06-02 15:02] LABS: Albumin 3.7 g/dL (3.5-5.0)
[2020-06-02 15:03] LABS: Chloride 91 mmol/L (98-107); Potassium 4.5 mmol/L (3.5-5.1); Sodium 127 mmol/L (136-145)
[2020-06-02 15:05] LABS: Globulin 3.7 g/dL (2.4-3.5); Protein, Total 7.4 g/dL (6.0-8.3)
[2020-06-02 15:06] LABS: Anion Gap 19 mmol/L (10-20); Bilirubin, Total 0.6 mg/dL (0.2-1.2); Carbon Dioxide 22 mmol/L (22-29)
[2020-06-02 15:07] LABS: Alkaline Phosphatase 108 U/L (40-110)
[2020-06-02 15:08] LABS: Calc. Creatinine Clearance 0 mL/min (70-130); Estimated GFR-MDRD Greater than 90
[2020-06-02 15:09] LABS: BUN (Urea Nitrogen) 8 mg/dL (8.9-20.6)
[2020-06-02 15:10] LABS: ALT (SGPT) 35 U/L (8-55); AST (SGOT) 27 U/L (5-34)
[2020-06-02 15:12] LABS: Glucose 535 mg/dL (70-105)
[2020-06-02] MEDS ORDERED: Dextrose 5% in Water 1,000 ML IV PRN (16:30)
[2020-06-02] MEDS ORDERED: HumaLOG 300 UNITS/3 ML VIAL SC PRN (16:30)
[2020-06-02] MEDS ORDERED: Guaifenesin DM 100-10/5 ML UDCUP PO PRN (16:30)
[2020-06-02] MEDS ORDERED: Dextrose 50% Abboject 50 ML SYRINGE SLOW IVP PRN (16:30)
[2020-06-02] MEDS ORDERED: Bisacodyl 10 MG SUPP PR PRN (16:30)
[2020-06-02] MEDS ORDERED: Senokot S 8.6-50 MG TAB PO PRN (16:30)
[2020-06-02] MEDS ORDERED: Ondansetron PF 4 MG/2 ML Vial IVP PRN (16:30)
--- NOTE | 2020-06-02 17:35 | HP ---
REASON FOR ADMISSION: Diabetes mellitus type 2, uncontrolled due to noncompliance, suspected anterior chest wall cellulitis. HISTORY OF PRESENTING ILLNESS: The patient gives history of having redness and itching on the anterior chest wall. This has been present for the last 2 days and the patch is progressively getting bigger. He has not had any exposure to poison debra or has history of contact dermatitis. He also mentions that he has not taken any insulins from December. He has been a diabetic from 1996. He has no access for insulin due to financial reasons. No complaints of cough or expectoration. No exposure to COVID in the family. Has felt weak from this morning and came to emergency room here. On arrival, the patient was found to have had a serum sugar of 535. PAST MEDICAL AND SURGICAL HISTORY: Diabetes mellitus type 2 from 1996. No surgical history. CURRENT MEDICATIONS: None. Has not been able to afford insulins from December. ALLERGIES: NO KNOWN DRUG ALLERGIES. PERSONAL HISTORY: States he drinks alcohol on social occasions, but to ER physician he had mentioned that he drinks up to 6 beers a day. Does not smoke or abuse drugs. 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 Lives with his . FAMILY HISTORY: Mother is living and has diabetes. Father at the age of 75 from diabetes and its complications. CODE STATUS: Full. Power of cardroom attendant is his . REVIEW OF SYSTEMS: CONSTITUTIONAL: Negative for weight loss or gain, ability to conduct usual activities. SKIN: Negative for rash, itching. EYES: Negative for double vision, pain. ENT/MOUTH: Negative for nose bleeding, neck stiffness, pain, tenderness. CARDIOVASCULAR: Negative for palpitations, dyspnea on exertion, orthopnea. RESPIRATORY: Negative for shortness of breath, wheezing, cough, hemoptysis, fever or night sweats. GASTROINTESTINAL: Negative for poor appetite, abdominal pain, heartburn, nausea, vomiting, constipation, or diarrhea. GENITOURINARY: Negative for urgency, frequency, dysuria, nocturia. MUSCULOSKELETAL: Negative for pain, swelling. NEUROLOGIC/PSYCHIATRIC: Negative for anxiety, depression. ALLERGY/IMMUNOLOGIC: Negative for skin rash, bleeding tendency. PHYSICAL EXAMINATION: GENERAL: The patient is a 39-year-old male, who is currently not in any acute distress. VITAL SIGNS: Blood pressure 160/86, pulse 110 per minute, respiratory rate 18 per minute, temperature 98.9 degrees Fahrenheit, saturating 99% on room air. NECK: Supple. No elevated JVD. HEENT: Eyes; extraocular muscles intact. Pupils reacting to light. Oral cavity, mucous membranes are dry. No exudates or congestion. CARDIOVASCULAR: S1 and S2 heard. Tachycardic. No murmur. RESPIRATORY: Air entry 1+ bilateral. No rales or rhonchi. ABDOMEN: Soft. Bowel sounds heard. No tenderness, rigidity, or guarding. EXTREMITIES: No peripheral edema or calf tenderness. VASCULAR: Peripheral pulses 2+ bilateral. No ischemic ulcers or gangrene. SKIN: The patient has some erythema to the anterior chest wall all across in the center. He has blanching as well. There is no raised wheals or flare seen. The patient also has mild erythema to the posterior thorax. CENTRAL NERVOUS SYSTEM: No gross focal motor deficits noted. The patient is alert, awake, oriented well. PSYCHIATRIC: The patient's mood is euthymic. No hallucinations or delusions. LABORATORY DATA: White count of 12, H and H 13 and 39, platelet count 165, MCV is 94 with 81% neutrophils. Sodium 127, BUN 8, creatinine 0.7, serum glucose 535, serum bicarb 22, lactic acid 2.6. Liver enzymes within normal limits. CLINICAL IMPRESSION AND PLAN: The patient will be admitted to medical floor for uncontrolled diabetes due to noncompliance with medication due to financial reasons, anterior chest wall suspected cellulitis. The patient will be hydrated with lactated Ringer's at 100 mL per hour. He will be on Lantus 20 units subcu twice daily and glimepiride 2 mg p.o. daily. The patient likely will need to go back on 70/30 insulin tomorrow and needs Case Management consultation for help with insulin. He will be on Zosyn and vancomycin for suspected cellulitis. He has itching over the anterior chest wall erythematous area. No fungal lesions are noted. This has been present for last 2 days. A trial of Benadryl can be done in the morning when he is more stable. He is currently hemodynamically stable. We will continue to closely monitor him on medical floor. Job ID: [id number]
[2020-06-02] MEDS: Piperacillin/Tazobactam 3.375 GM in Sodium Chloride 0.9% 100 ML IVPB SCH ×2 (18:00→23:33)
[2020-06-02] MEDS: HumaLOG 300 UNITS/3 ML VIAL SC PRN (18:02)
[2020-06-02 18:21] VITALS: BMI 24.6
[2020-06-02] MEDS: Vancomycin HCl 1.75 GM in Sodium Chloride 0.9% 500 ML IVPB SCH (19:20)
[2020-06-02] MEDS: Famotidine 20 MG TAB PO SCH (20:08)
[2020-06-02] MEDS: Acetaminophen 325 MG TAB PO PRN (20:08)
[2020-06-02] MEDS ORDERED: Vancomycin 1 GM in Premix Bag 1 BAG IVPB SCH (21:00)
[2020-06-02] MEDS: Insulin Glargine 20 UNITS in Pre-Filled Syringe SC SCH (22:41)
[2020-06-02 23:10] LABS: SARS-CoV-2 MS2 Positive; SARS-CoV-2 N Gene Negative; SARS-CoV-2 S Gene Negative; SARS-CoV-2 by NAA Not Detected (NotDetected); SARS-CoV-2 orf1ab Negative
[2020-06-03] MEDS: Piperacillin/Tazobactam 3.375 GM in Sodium Chloride 0.9% 100 ML IVPB SCH ×3 (05:36→17:06)
[2020-06-03] MEDS: Vancomycin HCl 1.75 GM in Sodium Chloride 0.9% 500 ML IVPB SCH ×2 (06:13→18:13)
[2020-06-03 06:53] LABS: Anion Gap 18 mmol/L (10-20); BUN (Urea Nitrogen) 6 mg/dL (8.9-20.6); Calc. Creatinine Clearance 170 mL/min (70-130); Calcium 8.5 mg/dL (7.8-10.44); Carbon Dioxide 21 mmol/L (22-29); Chloride 97 mmol/L (98-107); Estimated GFR-MDRD Greater than 90; Glucose 168 mg/dL (70-105); Potassium 3.6 mmol/L (3.5-5.1); Sodium 132 mmol/L (136-145)
[2020-06-03 07:28] LABS: Hemoglobin 12.5 g/dL (14.0-18.0); Mean Corpuscular HGB CONC 33.8 g/dL (32.0-36.0); Mean Corpuscular Hemoglobin 32.4 pg (27.0-31.0); Mean Corpuscular Volume 95.9 fL (78.0-98.0); Platelet Count 169 thou/uL (130-400); RBC Distribution Width 11.4 % (11.5-14.5); Red Blood Cell (RBC) Count 3.85 mill/uL (4.70-6.10); White Blood Cell (WBC) Count 14.1 thou/uL (4.8-10.8)
[2020-06-03 08:14] LABS: Band 23 % (5-11); Lymphocytes 9 % (21-51); MDiff Complete? YES; Metamyelocyte 1 % (0-0); Monocytes 6 % (0-10); Neutrophil 52 % (42-75); Platelet Morphology Comment Appears Adequate; RBC Morphology Normal; Reactive Lymphocytes 9 % (0-10)
[2020-06-03] MEDS: Glimepiride 2 MG TAB PO SCH (08:25)
[2020-06-03] MEDS: Insulin Glargine 20 UNITS in Pre-Filled Syringe SC SCH ×2 (08:25→20:45)
[2020-06-03] MEDS: Famotidine 20 MG TAB PO SCH ×2 (08:26→20:45)
[2020-06-03] MEDS ORDERED: FLU VACC QS2020-21(6MOS UP)/PF 60 MCG/0.5 ML SYRINGE IM ONE (09:00)
[2020-06-03] MEDS: Enoxaparin Sodium 40 MG/0.4 ML SYRINGE SC SCH (09:37)
[2020-06-03] MEDS: HumaLOG 300 UNITS/3 ML VIAL SC PRN ×2 (11:33→16:19)
--- NOTE | 2020-06-03 13:19 | PDOC.HOSPP ---
- Subjective Encounter Date: 06/03/20 Encounter Time: 13:17 Subjective: This is a 39-year-old patient who is admitted to the hospital with what appears to be cellulitis across the upper abdominal area. He reports that this has been going on about 4 maybe 5 days. This area wraps around the upper abdominal area. It is macular erythematous rash. He denied any fever. However he was febrile on arrival here with a T-max of 101.5. He also has uncontrolled diabetes with a blood sugar that was significantly elevated. - Objective Vital Signs & Weight: Vital Signs (12 hours) Temp Pulse Resp BP Pulse Ox 06/03/20 11:13 98.9 F 100 20 147/87 H 98 06/03/20 08:00 97 06/03/20 07:16 97.9 F 90 18 139/81 97 06/03/20 04:37 98.3 F 90 20 131/80 100 Weight Weight 148 lb 1 oz I&O: 06/02/20 06/03/20 06/04/20 06:59 06:59 06:59 Intake Total 2600 Balance 2600 Result Diagrams: 06/03/20 05:48 06/03/20 05:48 Additional Labs: Accuchecks 06/03/20 06/03/20 06/02/20 11:12 04:40 19:42 POC Glucose 432 H 158 H 178 H 06/02/20 17:46 POC Glucose 336 H Radiology Reviewed by me: Yes EKG Reviewed by me: Yes Hospitalist ROS - Review of Systems Constitutional: reports: weakness, malaise Skin: reports: rash - Medication Medications: Active Medications Generic Name Dose Route Start Last Admin Trade Name Freq PRN Reason Stop Dose Admin Acetaminophen 650 mg 06/02/20 16:30 06/02/20 20:08 Acetaminophen 325 Mg Tab PO 650 mg Q4H PRN Administration Headache/Fever/Mild Pain (1-3) Enoxaparin Sodium 40 mg 06/03/20 09:00 06/03/20 09:37 Enoxaparin Sodium 40 Mg/0.4 Ml Syringe SC 40 mg 0900 CECY Administration Famotidine 20 mg 06/02/20 21:00 06/03/20 08:26 Famotidine 20 Mg Tab PO 20 mg BID CECY Administration Glimepiride 2 mg 06/03/20 08:00 06/03/20 08:25 Glimepiride 2 Mg Tab PO 2 mg QAM-WM CECY Administration Insulin Glargine 20 units/ 0.2 mls @ 0 mls/hr 06/02/20 21:00 06/03/20 08:25 Miscellaneous Medication SC 0.2 mls BID CECY Administration Piperacillin Sod/Tazobactam 100 mls @ 200 mls/hr 06/02/20 18:00 06/03/20 11:33 Sod 3.375 gm/ Sodium Chloride IVPB 100 mls Q6HR CECY Administration Vancomycin HCl 1.75 gm/ Sodium 500 mls @ 250 mls/hr 06/02/20 18:00 06/03/20 06:13 Chloride IVPB 500 mls 0600,1800 CECY Administration Insulin Human Lispro 0 units 06/02/20 16:30 06/03/20 11:33 Humalog 300 Units/3 Ml Vial SC 10 unit .MODERATE SLIDING SC PRN Administration Moderate Correctional Scale - Exam General Appearance: NAD, awake alert Eye: PERRL, anicteric sclera ENT: normocephalic atraumatic, no oropharyngeal lesions, moist mucosa Neck: supple, symmetric, no JVD, no thyromegaly, no lymphadenopathy Heart: RRR, no murmur, no gallops, no rubs, normal peripheral pulses Respiratory: CTAB, no wheezes, no rales, no ronchi, normal chest expansion Gastrointestinal: soft, non-tender, non-distended, normal bowel sounds, no palpable masses Neurological: cranial nerve grossly intact, normal sensation to touch Musculoskeletal: normal tone, normal strength Psychiatric: normal affect, normal behavior, A&O x 3, oriented to person Hosp A/P (1) Uncontrolled type 2 diabetes mellitus Code(s): E11.65 - TYPE 2 DIABETES MELLITUS WITH HYPERGLYCEMIA Status: Chronic - Plan #1. Cellulitis of the anterior abdominal wall. I agree with empiric IV antibiotics. Cultures are collected on admission and are pending. 2. Sepsis likely secondary to abdominal wall cellulitis. This was present on admission. He had fever and white count is elevated. I would like to cover for mixed gram-positive and gram-negative bacteria. 3. Uncontrolled diabetes. His blood sugar was elevated on admission. The patient has not been compliant with insulin regimen. We have asked case management to help us with getting him set up for insulin.
[2020-06-03] MEDS: Acetaminophen 325 MG TAB PO PRN ×2 (16:18→20:46)
[2020-06-04] MEDS: Piperacillin/Tazobactam 3.375 GM in Sodium Chloride 0.9% 100 ML IVPB SCH ×5 (00:02→23:05)
[2020-06-04 05:04] LABS: #Lymphocytes 1.4 thou/uL (1.20-3.40); #Monocytes 1.7 thou/uL (0.11-0.59); #Neutrophils 10.9 thou/uL (1.40-6.50); %Basophils 0.3 % (0.0-1.0); %Eosinophils 0.2 % (0.0-10.0); %Lymphocytes 9.8 % (21.0-51.0); %Monocytes 11.8 % (0.0-10.0); %Neutrophils 77.8 % (42.0-75.0); Hemoglobin 12.4 g/dL (14.0-18.0); Mean Corpuscular HGB CONC 33.3 g/dL (32.0-36.0); Mean Corpuscular Hemoglobin 31.7 pg (27.0-31.0); Mean Corpuscular Volume 95.4 fL (78.0-98.0); Mean Platelet Volume 7.2 fL (7.4-10.4); Platelet Count 229 thou/uL (130-400); RBC Distribution Width 11.2 % (11.5-14.5); Red Blood Cell (RBC) Count 3.91 mill/uL (4.70-6.10)
[2020-06-04 05:26] LABS: Vancomycin, Trough 5.3 ug/mL
[2020-06-04 05:28] LABS: Anion Gap 13 mmol/L (10-20); BUN (Urea Nitrogen) 5 mg/dL (8.9-20.6); Calc. Creatinine Clearance 144 mL/min (70-130); Calcium 8.7 mg/dL (7.8-10.44); Carbon Dioxide 27 mmol/L (22-29); Chloride 95 mmol/L (98-107); Estimated GFR-MDRD Greater than 90; Glucose 171 mg/dL (70-105); Potassium 3.1 mmol/L (3.5-5.1); Sodium 132 mmol/L (136-145)
[2020-06-04] MEDS: Vancomycin HCl 1.75 GM in Sodium Chloride 0.9% 500 ML IVPB SCH (05:52)
[2020-06-04] MEDS: HumaLOG 300 UNITS/3 ML VIAL SC PRN ×3 (06:43→17:23)
[2020-06-04] MEDS: Famotidine 20 MG TAB PO SCH ×2 (08:54→20:25)
[2020-06-04] MEDS: Enoxaparin Sodium 40 MG/0.4 ML SYRINGE SC SCH (08:55)
[2020-06-04] MEDS: Insulin Glargine 20 UNITS in Pre-Filled Syringe SC SCH ×2 (08:55→20:25)
[2020-06-04] MEDS: Glimepiride 2 MG TAB PO SCH (08:55)
--- NOTE | 2020-06-04 10:53 | PDOC.HOSPP ---
- Subjective Encounter Date: 06/04/20 Encounter Time: 10:51 Subjective: He continues to have fever on and off since admission. He had a T-max of 101.2 overnight. Cultures collected on admission are negative to date. The cellulitis on the abdominal wall appears to have improved. I will continue current antibiotic coverage. - Objective Vital Signs & Weight: Vital Signs (12 hours) Temp Pulse Resp BP Pulse Ox 06/04/20 08:00 99 06/04/20 07:26 98.1 F 81 20 148/83 H 99 06/04/20 04:33 98.3 F 94 20 149/88 H 98 06/04/20 00:00 98.9 F 86 20 148/84 H 99 Weight Weight 148 lb 1 oz I&O: 06/03/20 06/04/20 06/05/20 06:59 06:59 06:59 Intake Total 2600 4500 Balance 2600 4500 Result Diagrams: 06/04/20 04:55 06/04/20 04:55 Additional Labs: Accuchecks 06/03/20 06/03/20 06/03/20 19:37 15:52 11:12 POC Glucose 291 H 230 H 432 H Radiology Reviewed by me: Yes EKG Reviewed by me: Yes Hospitalist ROS - Review of Systems Constitutional: reports: weakness, malaise Gastrointestinal: reports: nausea Skin: reports: rash - Medication Medications: Active Medications Generic Name Dose Route Start Last Admin Trade Name Freq PRN Reason Stop Dose Admin Acetaminophen 650 mg 06/02/20 16:30 06/03/20 20:46 Acetaminophen 325 Mg Tab PO 650 mg Q4H PRN Administration Headache/Fever/Mild Pain (1-3) Enoxaparin Sodium 40 mg 06/03/20 09:00 06/04/20 08:55 Enoxaparin Sodium 40 Mg/0.4 Ml Syringe SC 40 mg 0900 CECY Administration Famotidine 20 mg 06/02/20 21:00 06/04/20 08:54 Famotidine 20 Mg Tab PO 20 mg BID CECY Administration Glimepiride 2 mg 06/03/20 08:00 06/04/20 08:55 Glimepiride 2 Mg Tab PO 2 mg QAM-WM CECY Administration Insulin Glargine 20 units/ 0.2 mls @ 0 mls/hr 06/02/20 21:00 06/04/20 08:55 Miscellaneous Medication SC 0.2 mls BID CECY Administration Piperacillin Sod/Tazobactam 100 mls @ 200 mls/hr 06/02/20 18:00 06/04/20 05:07 Sod 3.375 gm/ Sodium Chloride IVPB 100 mls Q6HR CECY Administration Insulin Human Lispro 0 units 06/02/20 16:30 06/04/20 06:43 Humalog 300 Units/3 Ml Vial SC 2 unit .MODERATE SLIDING SC PRN Administration Moderate Correctional Scale - Exam General Appearance: NAD, awake alert Eye: PERRL, anicteric sclera ENT: normocephalic atraumatic, no oropharyngeal lesions Neck: supple, symmetric, no JVD, no thyromegaly Heart: RRR, no murmur, no gallops, no rubs, normal peripheral pulses Respiratory: CTAB, no wheezes, no rales, no ronchi, normal chest expansion Gastrointestinal: soft, non-tender, non-distended, normal bowel sounds Neurological: cranial nerve grossly intact, normal sensation to touch Musculoskeletal: normal tone, normal strength, no muscle wasting Psychiatric: normal affect, normal behavior, A&O x 3 Hosp A/P (1) Uncontrolled type 2 diabetes mellitus Code(s): E11.65 - TYPE 2 DIABETES MELLITUS WITH HYPERGLYCEMIA Status: Chronic - Plan #1. Cellulitis of the anterior abdominal wall. I agree with empiric IV antibiotics. Cultures are collected on admission and are pending. 06/04/2020. This is resolving. Continue current antibiotic coverage. 2. Sepsis likely secondary to abdominal wall cellulitis. This was present on admission. He had fever and white count is elevated. I would like to cover for mixed gram-positive and gram-negative bacteria. 06/04/2020. Sepsis has resolved. 3. Uncontrolled diabetes. His blood sugar was elevated on admission. The patient has not been compliant with insulin regimen. We have asked case management to help us with getting him set up for insulin.
[2020-06-04] MEDS: Vancomycin HCl 1.25 GM in Sodium Chloride 0.9% 250 ML 250 ML IVPB SCH ×2 (12:25→18:25)
[2020-06-04] MEDS: Acetaminophen 325 MG TAB PO PRN (14:54)
[2020-06-04 23:29] LABS: Vancomycin, Trough 14.6 ug/mL
[2020-06-05] MEDS: Vancomycin HCl 1.25 GM in Sodium Chloride 0.9% 250 ML 250 ML IVPB SCH ×4 (00:23→17:33)
[2020-06-05] MEDS: Piperacillin/Tazobactam 3.375 GM in Sodium Chloride 0.9% 100 ML IVPB SCH ×4 (05:16→23:28)
[2020-06-05 08:04] LABS: #Lymphocytes 1.3 thou/uL (1.20-3.40); #Monocytes 1.2 thou/uL (0.11-0.59); #Neutrophils 7.6 thou/uL (1.40-6.50); %Basophils 0.4 % (0.0-1.0); %Eosinophils 0.3 % (0.0-10.0); %Monocytes 11.5 % (0.0-10.0); %Neutrophils 74.8 % (42.0-75.0); Hemoglobin 12.7 g/dL (14.0-18.0); Mean Corpuscular HGB CONC 34.8 g/dL (32.0-36.0); Mean Corpuscular Hemoglobin 33.2 pg (27.0-31.0); Mean Corpuscular Volume 95.2 fL (78.0-98.0); Mean Platelet Volume 7.4 fL (7.4-10.4); Platelet Count 259 thou/uL (130-400); RBC Distribution Width 11.3 % (11.5-14.5); Red Blood Cell (RBC) Count 3.83 mill/uL (4.70-6.10); White Blood Cell (WBC) Count 10.1 thou/uL (4.8-10.8)
[2020-06-05] MEDS: Enoxaparin Sodium 40 MG/0.4 ML SYRINGE SC SCH (08:09)
[2020-06-05] MEDS: Glimepiride 2 MG TAB PO SCH (08:09)
[2020-06-05] MEDS: Insulin Glargine 20 UNITS in Pre-Filled Syringe SC SCH ×2 (08:10→21:03)
[2020-06-05] MEDS: Famotidine 20 MG TAB PO SCH ×2 (08:10→20:29)
[2020-06-05 08:27] LABS: Anion Gap 14 mmol/L (10-20); BUN (Urea Nitrogen) 4 mg/dL (8.9-20.6); Calc. Creatinine Clearance 144 mL/min (70-130); Carbon Dioxide 28 mmol/L (22-29); Chloride 97 mmol/L (98-107); Estimated GFR-MDRD Greater than 90; Glucose 138 mg/dL (70-105); Sodium 136 mmol/L (136-145)
[2020-06-05 08:51] LABS: Potassium 2.9 mmol/L (3.5-5.1)
[2020-06-05] MEDS ORDERED: Potassium Chloride 20 MEQ TAB PO SCH (09:15)
[2020-06-05] MEDS: HumaLOG 300 UNITS/3 ML VIAL SC PRN ×2 (11:38→17:28)
--- NOTE | 2020-06-05 12:14 | PDOC.HOSPP ---
- Subjective Encounter Date: 06/05/20 Encounter Time: 12:07 Subjective: Patient seen and examined. He reports no acute issues overnight. - Objective Vital Signs & Weight: Vital Signs (12 hours) Temp Pulse Resp BP Pulse Ox 06/05/20 08:28 98.1 F 81 18 155/84 H 98 06/05/20 08:00 98.1 F 81 06/05/20 03:40 98.8 F 78 15 156/91 H 99 Weight Weight 148 lb 1 oz I&O: 06/04/20 06/05/20 06/06/20 06:59 06:59 06:59 Intake Total 4500 3200 2190 Balance 4500 3200 2190 Result Diagrams: 06/05/20 07:16 06/05/20 07:16 Additional Labs: Accuchecks 06/05/20 06/05/20 06/04/20 11:38 04:54 19:50 POC Glucose 360 H 159 H 202 H 06/04/20 06/04/20 15:49 04:38 POC Glucose 273 H 175 H Radiology Reviewed by me: Yes EKG Reviewed by me: Yes Hospitalist ROS - Review of Systems Constitutional: reports: weakness Skin: reports: rash Neurological: reports: weakness - Medication Medications: Active Medications Generic Name Dose Route Start Last Admin Trade Name Freq PRN Reason Stop Dose Admin Acetaminophen 650 mg 06/02/20 16:30 06/04/20 14:54 Acetaminophen 325 Mg Tab PO 650 mg Q4H PRN Administration Headache/Fever/Mild Pain (1-3) Enoxaparin Sodium 40 mg 06/03/20 09:00 06/05/20 08:09 Enoxaparin Sodium 40 Mg/0.4 Ml Syringe SC 40 mg 0900 CECY Administration Famotidine 20 mg 06/02/20 21:00 06/05/20 08:10 Famotidine 20 Mg Tab PO 20 mg BID CECY Administration Glimepiride 2 mg 06/03/20 08:00 06/05/20 08:09 Glimepiride 2 Mg Tab PO 2 mg QAM-WM CECY Administration Insulin Glargine 20 units/ 0.2 mls @ 0 mls/hr 06/02/20 21:00 06/05/20 08:10 Miscellaneous Medication SC 0.2 mls BID CECY Administration Piperacillin Sod/Tazobactam 100 mls @ 200 mls/hr 06/02/20 18:00 06/05/20 11:29 Sod 3.375 gm/ Sodium Chloride IVPB 100 mls Q6HR CECY Administration Vancomycin HCl 1.25 gm/ Sodium 250 mls @ 166.667 mls/hr 06/04/20 12:00 06/05/20 11:36 Chloride IVPB 250 mls Q6HR CECY Administration Insulin Human Lispro 0 units 06/02/20 16:30 06/05/20 11:38 Humalog 300 Units/3 Ml Vial SC 10 unit .MODERATE SLIDING SC PRN Administration Moderate Correctional Scale - Exam General Appearance: NAD, awake alert ENT: normocephalic atraumatic, no oropharyngeal lesions Neck: supple, symmetric, no JVD, no thyromegaly Heart: RRR, no murmur, no gallops, no rubs Respiratory: CTAB, no wheezes, no rales, no ronchi, normal chest expansion Gastrointestinal: soft, non-tender, non-distended, normal bowel sounds Neurological: cranial nerve grossly intact, normal sensation to touch Musculoskeletal: normal tone, normal strength, no muscle wasting Psychiatric: normal affect, normal behavior, A&O x 3, oriented to person Hosp A/P (1) Uncontrolled type 2 diabetes mellitus Code(s): E11.65 - TYPE 2 DIABETES MELLITUS WITH HYPERGLYCEMIA Status: Chronic - Plan #1. Cellulitis of the anterior abdominal wall. I agree with empiric IV antibiotics. Cultures are collected on admission and are pending. 06/04/2020. This is resolving. Continue current antibiotic coverage. 2. Sepsis likely secondary to abdominal wall cellulitis. This was present on admission. He had fever and white count is elevated. I would like to cover for mixed gram-positive and gram-negative bacteria. 06/04/2020. Sepsis has resolved. 3. Uncontrolled diabetes. His blood sugar was elevated on admission. The patient has not been compliant with insulin regimen. We have asked case management to help us with getting him set up for insulin.
[2020-06-05 23:47] LABS: Vancomycin, Trough 17.7 ug/mL
[2020-06-06] MEDS: Vancomycin HCl 1.25 GM in Sodium Chloride 0.9% 250 ML 250 ML IVPB SCH ×3 (00:19→11:37)
[2020-06-06] MEDS: Piperacillin/Tazobactam 3.375 GM in Sodium Chloride 0.9% 100 ML IVPB SCH ×2 (05:32→11:37)
[2020-06-06] MEDS: Enoxaparin Sodium 40 MG/0.4 ML SYRINGE SC SCH (09:11)
[2020-06-06] MEDS: Famotidine 20 MG TAB PO SCH (09:11)
[2020-06-06] MEDS: Insulin Glargine 20 UNITS in Pre-Filled Syringe SC SCH (09:19)
[2020-06-06] MEDS: Glimepiride 2 MG TAB PO SCH (09:20)
[2020-06-06 10:11] LABS: Anion Gap 12 mmol/L (10-20); BUN (Urea Nitrogen) 4 mg/dL (8.9-20.6); Calc. Creatinine Clearance 123 mL/min (70-130); Calcium 9.1 mg/dL (7.8-10.44); Carbon Dioxide 28 mmol/L (22-29); Chloride 98 mmol/L (98-107); Estimated GFR-MDRD Greater than 90; Glucose 279 mg/dL (70-105); Potassium 3.4 mmol/L (3.5-5.1); Sodium 135 mmol/L (136-145)
[2020-06-06] MEDS: HumaLOG 300 UNITS/3 ML VIAL SC PRN (12:03)
[2020-06-06 13:16] VITALS: BP 176/96; TEMP 97.5
--- NOTE | 2020-06-06 14:45 | PDOC.DS.DS ---
Provider - Provider Date of Admission: 06/02/20 16:18 Admitting Provider: Rodrigo Ortiz MD Consultations: None Primary Care Physician: NO PCP PROVIDER Course - Hospital Course Hospital Course: This patient is a 39-year-old who presented to the hospital with fever and was found to have abdominal wall cellulitis. He also was septic on admission. He was hospitalized for further treatment. He was started on empiric IV Zosyn and vancomycin. Cultures were collected. His cultures remained negative to date. His fever resolved. He did well and is discharged home today to complete oral antibiotics at home. He discharged home in a stable condition. Resuscitation Status: 06/02/20 16:25 Resuscitation Status Routine Resuscitation Status: FULL: Full Resuscitation Discussed with: POA: - Labs Lab Results: 06/05/20 07:16 06/06/20 09:32 Abnormal Lab Results - Last 48 hrs 06/05/20 07:16: Potassium 2.9 L*, Chloride 97 L, BUN 4 L, Creatinine 0.65 L 06/05/20 07:16: RBC 3.83 L, Hgb 12.7 L, Hct 36.5 L, MCH 33.2 H, RDW 11.3 L, Lymphocytes % 13.0 L, Monocytes % 11.5 H, Neutrophils # 7.6 H, Monocytes # 1.2 H 06/06/20 09:32: Sodium 135 L, Potassium 3.4 L, BUN 4 L Microbiology - Entire Visit 06/02/20 14:57 Venous blood - Left Arm Blood Culture - Preliminary NO GROWTH AT 48 HOURS 06/02/20 15:04 Venous blood - Right Arm Blood Culture - Preliminary NO GROWTH AT 48 HOURS - Physical Exam Vitals: Vital Signs (12 hours) Temp Pulse Resp BP BP Pulse Ox 06/06/20 13:15 97.5 F L 84 16 176/96 H 100 06/06/20 08:00 97.7 F 77 18 136/85 98 Weight Weight 148 lb 1 oz Physical Exam: The patient was seen and examined on the day of discharge. Problem - Problem (1) Uncontrolled type 2 diabetes mellitus Code(s): E11.65 - TYPE 2 DIABETES MELLITUS WITH HYPERGLYCEMIA Status: Chronic (2) Sepsis Code(s): A41.9 - SEPSIS, UNSPECIFIED ORGANISM Status: Acute Qualifiers: Severe sepsis shock status: without septic shock (3) Cellulitis Code(s): L03.90 - CELLULITIS, UNSPECIFIED Status: Acute - Time spent with Patient (mins): 30 Plan - Discharge Medications Prescriptions: glipiZIDE [glipiZIDE XL] 5 mg PO QAM-WM #90 tab.er.24 Cephalexin [Keflex] 500 mg PO QID #21 capsule Home Medications: Medication Instructions Recorded Confirmed Type Cephalexin [Keflex] 500 mg PO QID #21 capsule 06/06/20 Rx glipiZIDE [glipiZIDE XL] 5 mg PO QAM-WM #90 tab.er.24 06/06/20 Rx Allergies: No Known Allergies Allergy (Verified 12/24/17 20:15) - Discharge Instructions Activity:: Activity as Tolerated Nourishment:: Diabetic Diet - Follow up Plan Referrals: PROVIDER,NO PCP [Primary Care Provider] - Disposition: HOME Quality - Care Measures CORE MEASURES:: N/A
== END 2020-06-06 13:00 | disposition home or self-care (01) | DRG 872 ==
LOC: ERS 13:29 → T4-B 16:18
PROVIDERS: ADMIT Internal Medicine; ATTEND Hospitalist
DX: A41.9 Sepsis, unspecified organism (principal); L03.313 Cellulitis of chest wall; L03.311 Cellulitis of abdominal wall; E11.65 Type 2 diabetes mellitus with hyperglycemia; Z20.828 Contact with and (suspected) exposure to other viral communicable diseases; Z91.14 Patient's other noncompliance with medication regimen; R65.20 Severe sepsis without septic shock
CPT/HCPCS: 36415; 36416; 80048; 80053; 80202; 83605; 85025; 87040; 87635; 90471; 90662; G0008; J0696; J1650; J1815; J2543; J3370; J3490; J7030; J7050; U0003

== ENCOUNTER 2020-08-27 19:20 | Inpatient (IN) | payer SELFPAY ==
[2020-08-27] MEDS ORDERED: Lidocaine 1% w/Epinephrine 1:100K 20 ML VIAL ONE (19:59)
[2020-08-27 20:24] LABS: #Eosinphils 0.1 thou/uL (0.0-0.7); #Lymphocytes 1.6 thou/uL (1.20-3.40); #Monocytes 0.6 thou/uL (0.11-0.59); #Neutrophils 3.2 thou/uL (1.40-6.50); %Basophils 0.4 % (0.0-1.0); %Eosinophils 1.1 % (0.0-10.0); %Lymphocytes 29.1 % (21.0-51.0); %Monocytes 10.8 % (0.0-10.0); %Neutrophils 58.7 % (42.0-75.0); Hemoglobin 12.4 g/dL (14.0-18.0); Mean Corpuscular HGB CONC 35.7 g/dL (32.0-36.0); Mean Corpuscular Hemoglobin 32.2 pg (27.0-31.0); Mean Corpuscular Volume 90.3 fL (78.0-98.0); Platelet Count 238 thou/uL (130-400); RBC Distribution Width 11.5 % (11.5-14.5); Red Blood Cell (RBC) Count 3.85 mill/uL (4.70-6.10); White Blood Cell (WBC) Count 5.5 thou/uL (4.8-10.8)
[2020-08-27] MEDS ORDERED: Vancomycin 1 GM/200 ML BAG ONE (20:46)
[2020-08-27 20:50] LABS: ALT (SGPT) 14 U/L (8-55); AST (SGOT) 16 U/L (5-34); Albumin 3.9 g/dL (3.5-5.0); Alkaline Phosphatase 82 U/L (40-110); Anion Gap 18 mmol/L (10-20); BUN (Urea Nitrogen) 7 mg/dL (8.9-20.6); Bilirubin, Total 0.3 mg/dL (0.2-1.2); Calc. Creatinine Clearance 0 mL/min (70-130); Calcium 8.8 mg/dL (7.8-10.44); Carbon Dioxide 22 mmol/L (22-29); Chloride 95 mmol/L (98-107); Globulin 4.1 g/dL (2.4-3.5); Glucose 474 mg/dL (70-105); Potassium 4.4 mmol/L (3.5-5.1); Sodium 131 mmol/L (136-145)
[2020-08-27] MEDS ORDERED: Insulin Regular 300 UNITS/3 ML VIAL ONE (21:29)
[2020-08-28 00:03] LABS: Lactic Acid 2.7 mmol/L (0.5-2.2)
[2020-08-28] MEDS ORDERED: cloNIDine 0.1 MG TAB PO PRN (05:18)
[2020-08-28] MEDS ORDERED: hydrALAZINE 20 MG/ML VIAL SLOW IVP PRN (05:18)
[2020-08-28] MEDS ORDERED: Labetalol HCl 100 MG/20 ML VIAL SLOW IVP PRN (05:18)
[2020-08-28] MEDS ORDERED: Ondansetron PF 4 MG/2 ML Vial IVP PRN (05:18)
[2020-08-28] MEDS ORDERED: Acetaminophen 325 MG TAB PO PRN (05:18)
[2020-08-28] MEDS ORDERED: Guaifenesin DM 100-10/5 ML UDCUP PO PRN (05:18)
[2020-08-28] MEDS ORDERED: Promethazine HCl 12.5 MG in Sodium Chloride 0.9% 50 ML IVPB PRN (05:18)
[2020-08-28 05:21] LABS: SARS-CoV-2 PCR by NAA Not Detected (NotDetected)
[2020-08-28] MEDS ORDERED: Dextrose 5% in Water 1,000 ML IV PRN (05:23)
[2020-08-28] MEDS ORDERED: Dextrose 50% Abboject 50 ML SYRINGE SLOW IVP PRN (05:23)
--- NOTE | 2020-08-28 05:29 | PDOC.HHP ---
Hospitalist HPI Chest wall rash History of Present Illness: Patient is a 40 year old male with PMH T2DM who presents to ED for chest wall rash and pain. patient was treated here 2 months ago for chest wall cellulitis and sepsis, now reported that the pain and symptoms have returned. treated with vancomycin and zosyn and keflex at that time, never quite improved and got worse. in ED, rash concerning for recurrent cellulitis. wbc 5.5, na 131. glucose 474., lactic acid 3.1. abscesses drained x2, patient admitted for further workup and care. he has DM and reports taking 15 units a day, unsure if he is a good historian in this re ping. he drinks 5-6 drinks per day. Allergies/Adverse Reactions: Allergy/AdvReac Type Severity Reaction Status Date / Time No Known Allergies Allergy Verified 12/24/17 20:15 Home Medications: Medication Instructions Recorded Confirmed Type Cephalexin [Keflex] 500 mg PO QID #21 capsule 06/06/20 Rx glipiZIDE [glipiZIDE XL] 5 mg PO QAM-WM #90 tab.er.24 06/06/20 Rx Past History: PMH: DM PSH: no reported FH: no relevant FH social history: 5-6 drinks/day, no drug use reported Hospitalist HPI ROS Constitutional: denies: fever, chills, sweats, weakness, malaise, other Eyes: denies: pain, vision change, conjunctivae inflammation, eyelid inflammation, redness, other ENT: denies: ear pain, ear discharge, nose pain, nose discharge, nose congestion, mouth pain, mouth swelling, throat pain, throat swelling, other Respiratory: denies: cough, dry, shortness of breath, hemoptysis, SOB with excertion, pleuritic pain, sputum, wheezing, other Cardiovascular: denies: chest pain, palpitations, orthopnea, paroxysmal noc. dyspnea, edema, light headedness, other Gastrointestinal: denies: nausea, vomiting, abdominal pain, diarrhea, c onstipation, melena, hematochezia, other Genitourinary: denies: dysuria, frequency, incontinence, hematuria, retention, other Musculoskeletal: denies: neck pain, shoulder pain, arm pain, back pain, hand pain, leg pain, foot pain, other Skin: reports: rash, lesions. denies: tye, bruising, other Neurological: denies: weakness, numbness, incoordination, change in speech, confusion, seizures, other All other systems reviewed; all pertinent +/- noted in HPI/Subj Hospitalist Exam Vitals: VITAL SIGNS WedAug 27, 2020 22:30 DEO Blanchard Julia BP: 129/84 Pulse: 95 Resp: 18 Pain: 3 O2 sat: 98 on (Room Air) Time: 08/27/2020 22:30. General Appearance: NAD, awake alert Eye: PERRL, anicteric sclera ENT: normocephalic atraumatic, no oropharyngeal lesions, moist mucosa Neck: supple, symmetric, no JVD, no thyromegaly, no lymphadenopathy, no carotid bruit Heart: RRR, no murmur, no gallops, no rubs, normal peripheral pulses Respiratory: CTAB, no wheezes, no rales, no ronchi, normal chest expansion, no tachypnea, normal percussion Gastrointestinal: soft, non-tender, non-distended, normal bowel sounds, no palpable masses, no hepatomegaly, no splenomegaly, no bruit Extremities: no cyanosis, no clubbing, no edema Skin - other findings: chest wall erythema and edema, post surgical changes Neurological: cranial nerve grossly intact, normal sensation to touch, no weakness, no focal deficits, no new deficit Musculoskeletal: normal tone, normal strength, no muscle wasting Psychiatric: normal affect, normal behavior, A&O x 3 Hospitalist Results Result Diagrams: 08/27/20 20:08/27/20 20:03 Lab results: Laboratory Last Values WBC 5.5 thou/uL (4.8-10.8) 08/27/20 20: RBC 3.85 mill/uL (4.70-6.10) L 08/27/20 20:03 Hgb 12.4 g/dL (14.0-18.0) L 08/27/20 20:03 Hct 34.7 % (42.0-52.0) L 08/27/20 20:03 MCV 90.3 fL (78.0-98.0) 08/27/20 20: MCH 32.2 pg (27.0-31.0) H 08/27/20 20: MCHC 35.7 g/dL (32.0-36.0) 08/27/20 20:03 RDW 11.5 % (11.5-14.5) 08/27/20 20:03 Plt Count 238 thou/uL (130-400) 08/27/20 20:03 MPV 8.0 fL (7.4-10.4) 08/27/20 20:03 Neutrophils % 58.7 % (42.0-75.0) 08/27/20 20:03 Lymphocytes % 29.1 % (21.0-51.0) 08/27/20 20:03 Monocytes % 10.8 % (0.0-10.0) H 08/27/20 20:03 Eosinophils % 1.1 % (0.0-10.0) 08/27/20 20:03 Basophils % 0.4 % (0.0-1.0) 08/27/20 20:03 Neutrophils # 3.2 thou/uL (1.40-6.50) 08/27/20 20:03 Lymphocytes # 1.6 thou/uL (1.20-3.40) 08/27/20 20:03 Monocytes # 0.6 thou/uL (0.11-0.59) H 08/27/20 20:03 Eosinophils # 0.1 thou/uL (0.0-0.7) 08/27/20 20:03 Basophils # 0.0 thou/uL (0.0-0.2) 08/27/20 20:03 Sodium 131 mmol/L (136-145) L 08/27/20 20:03 Potassium 4.4 mmol/L (3.5-5.1) 08/27/20 20:03 Chloride 95 mmol/L (98-107) L 08/27/20 20:03 Carbon Dioxide 22 mmol/L (22-29) 08/27/20 20:03 Anion Gap 18 mmol/L (10-20) 08/27/20 20:03 BUN 7 mg/dL (8.9-20.6) L 08/27/20 20:03 Creatinine 0.87 mg/dL (0.7-1.3) 08/27/20 20:03 Estimated GFR (MDRD) Greater than 90 08/27/20 20:03 Glucose 474 mg/dL (70-105) H 08/27/20 20:03 POC Glucose 116 mg/dL (70-100) H 08/27/20 22:45 Lactic Acid 2.7 mmol/L (0.5-2.2) H 08/27/20 23:24 Calcium 8.8 mg/dL (7.8-10.44) 08/27/20 20:03 Total Bilirubin 0.3 mg/dL (0.2-1.2) 08/27/20 20:03 AST 16 U/L (5-34) 08/27/20 20:03 ALT 14 U/L (8-55) 08/27/20 20:03 Alkaline Phosphatase 82 U/L (40-110) 08/27/20 20:03 Serum Total Protein 8.0 g/dL (6.0-8.3) 08/27/20 20:03 Albumin 3.9 g/dL (3.5-5.0) 08/27/20 20:03 Globulin 4.1 g/dL (2.4-3.5) H 08/27/20 20:03 Albumin/Globulin Ratio 1.0 g/dL (1.2-2.2) L 08/27/20 20:03 SARS CoV-2 Rapid Source Nasopharyngeal Swab 08/27/20 22:46 SARS-CoV-2 RNA (JUVE) Not Detected (NotDetected) 08/27/20 22:46 Additional comment: ed documents, labs, vital signs, imaging reports reviewed Hospitalist H&P A/P Plan: Patient is a 40 year old male with PMH T2DM who presents to ED for chest wall rash and pain. # chest wall abscesses and purulent cellulitis # sepsis patient was treated here 2 months ago for chest wall cellulitis and sepsis, now reported that the pain and symptoms have returned. treated with vancomycin and zosyn and keflex at that time, never quite improved and got worse. in ED, rash concerning for recurrent cellulitis. wbc 5.5, na 131. glucose 474., lactic acid 3.1. in ED, abscesses drained x2, patient admitted for further workup and care. - admit to floor - start clindamycin - consult general surgery, wound care - await cultures # DM - he has DM and reports taking 15 units insulin a day, unsure if he is a good historian in this regard, uncontrolled - start moderate SSI and 10 units long acting a day, monitor ACHS # alcohol abuse - he drinks 5-6 drinks per day. monitor for signs of withdrawal DVT/gI ppx
[2020-08-28] MEDS ORDERED: Electrolyte Replacement Protocol 1 EACH FS SCH (05:30)
[2020-08-28 06:00] VITALS: BMI 23.4
[2020-08-28] MEDS ORDERED: Clindamycin/D5W 600 mg/50 ml Premix Bag ONE (06:11)
[2020-08-28] MEDS ORDERED: Morphine 2 MG/ML VIAL ONE (06:11)
[2020-08-28] MEDS: Morphine 2 MG/ML VIAL SLOW IVP PRN ×2 (06:16→21:19)
[2020-08-28] MEDS: Clindamycin/D5W 600 MG in Premix Bag 1 BAG IVPB SCH ×3 (06:16→21:23)
[2020-08-28] MEDS ORDERED: HumaLOG 300 UNITS/3 ML VIAL ONE (07:40)
[2020-08-28] MEDS: HumaLOG 300 UNITS/3 ML VIAL SC PRN ×2 (07:45→16:52)
[2020-08-28] MEDS ORDERED: Famotidine 20 MG TAB ONE (09:11)
[2020-08-28] MEDS: Famotidine 20 MG TAB PO SCH ×2 (09:14→21:22)
[2020-08-28] MEDS: Insulin Glargine 10 UNITS in Pre-Filled Syringe 1 EACH SC SCH (09:15)
[2020-08-28] MEDS: Polyethylene Glycol 3350 17 GM Packet PO SCH (10:15)
--- NOTE | 2020-08-28 11:32 | CT ---
CHEST CT WITH CONTRAST: HISTORY: Type 2 diabetes with chest wall cellulitis. COMPARISON: None. FINDINGS: There are enlarged left axillary lymph nodes. [employer] lymph node measures 1.1 x 1.1 cm. In the anterior left chest wall there is asymmetric edema involving the pectoralis major and pectoral is minor muscles. There is a hypodense focus in the left pectoralis major muscle which may represent a focal hematoma versus phlegmon measuring 2.2 x 3.3 cm. There are 2 separate mixed attenua tion foci in the medial aspect of the left pectoralis major muscle and just superficial to the xiphoid process of the sternum. Respectively these lesions measures 3.3 x 3.9 and 3.9 x 2.6 cm. These lesions have an attenuation coefficient of 47 and 44 Hounsfield units respectively. Complex/infected fluid collections are suspected. There does appear to be a small focus of fluid, jonnathan ear in appearance which appears to connect both of these collections. There is induration of the adjacent fat. The bilateral gynecomastia is noted. Subdiaphragmatic structures do not demonstrate any acute abnormality. Trachea and central bronchi are patent. Pleural effusion: None. Pneumothorax: None. Lungs: Dependent atelectatic changes. No masses, consolidation or suspicious nodules. Osseous structures: No lytic or blastic lesions. IMPRESSION: Extensive inflammatory/infectious changes involving the left chest as described above. Transcribed Date/Time: 08/28/2020 11:41 AM
[2020-08-28] MEDS: HYDROcodone/Acetaminophen 5/325 mg Tablet PO PRN (14:00)
[2020-08-28] MEDS ORDERED: Iopamidol-370 76% 500 ML 1 ML ONE (14:19)
[2020-08-28] MEDS: Enoxaparin Sodium 40 MG/0.4 ML SYRINGE SC SCH (21:22)
[2020-08-29] MEDS: Clindamycin/D5W 600 MG in Premix Bag 1 BAG IVPB SCH ×2 (05:39→13:40)
[2020-08-29 06:24] LABS: #Eosinphils 0.1 thou/uL (0.0-0.7); #Lymphocytes 1.1 thou/uL (1.20-3.40); #Monocytes 0.4 thou/uL (0.11-0.59); #Neutrophils 2.1 thou/uL (1.40-6.50); %Lymphocytes 30.6 % (21.0-51.0); %Monocytes 9.8 % (0.0-10.0); %Neutrophils 56.5 % (42.0-75.0); Hemoglobin 12.9 g/dL (14.0-18.0); Mean Corpuscular HGB CONC 34.4 g/dL (32.0-36.0); Mean Corpuscular Hemoglobin 31.7 pg (27.0-31.0); Mean Corpuscular Volume 92.3 fL (78.0-98.0); Mean Platelet Volume 7.8 fL (7.4-10.4); Platelet Count 221 thou/uL (130-400); RBC Distribution Width 11.7 % (11.5-14.5); Red Blood Cell (RBC) Count 4.08 mill/uL (4.70-6.10); White Blood Cell (WBC) Count 3.6 thou/uL (4.8-10.8)
--- NOTE | 2020-08-29 06:25 | CON ---
DATE OF CONSULTATION: 08/28/2020 RESIDENT: Key Abdul MD. This patient was discussed and evaluated with Dr. Nicole, who agrees with the plan as stated below. HISTORY OF PRESENT ILLNESS: This is a 40-year-old male, who presented to the ED for left-sided chest wall rash and pain. He was seen in the hospital two months ago for sepsis secondary to right-sided chest wall cellulitis. He was treated with vancomycin, Zosyn, and Keflex at that time, and was sent home after 1 week. He states the right side improved and that he discontinued all antibiotics about 1 month ago. It was around that time, that the redness spread to the left side. Over the past 2 weeks or so, the left side became increasingly erythematous, edematous, painful, bulging. Two different sections of this area were drained in the ED at the time of evaluation. Prior to this, the patient stated there had been no drainage, but it appears lancing it did produce some fluid. The only medical problems the patient knows he has a type 2 diabetes, for which he takes 15 units of insulin a day. At the time of evaluation, no imaging had been performed of the patient's chest. PAST MEDICAL HISTORY: Type 2 diabetes. SOCIAL HISTORY: The patient lives at home with his . 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 He drinks 5 to 6 alcoholic beverages per day, but denies smoking or drug use. FAMILY HISTORY: The patient's mom and dad also have diabetes. ALLERGIES: NO KNOWN ALLERGIES. REVIEW OF SYSTEMS: Unremarkable except as stated in the HPI. PHYSICAL EXAMINATION: GENERAL: The patient is lying comfortably in bed, in no acute distress. HEENT: Normocephalic, atraumatic. HEART: Regular rate and rhythm. LUNGS: Breathing regular and nonlabored. No respiratory distress. CHEST: There is erythema most notably on the left side of the chest, but extending a little past the midline to the right side. It extends about 4 cm below the nipple line and about 4 cm above. It is evident the patient has left-sided mastitis. There are two pieces of gauze taped to his chest, where he was lanced, and there is mild drainage from these two points. This area which is just medial to the nipple is indurated. The area appears to be mildly tender to palpation. ABDOMEN: Soft, not obese, nontender to palpation. NEUROLOGIC: Reveals no focal deficits. The patient is A and O x4. VITAL SIGNS: The patient has been consistently afebrile. His pulse has ranged from 75 to 82 beats per minute and is normal. His respiratory rate has ranged from 18 to 20, which is normal. His oxygen saturation has ranged from 99% to 100% on room air. His blood pressure has ranged from systolic 121 to 156 over diastolic 84 to 94. LABORATORY FINDINGS: CBC shows a normal white blood cell count of 5.5, mildly low hemoglobin of 12.4, hematocrit 34.7, platelets 238. His complete metabolic panel shows a mildly low sodium of 131, normal potassium of 4.4, low chloride of 95, normal bicarb of 22, BUN of 7, creatinine of 0.87, normal GFR greater than 90, normal transaminases and alkaline phosphatase. He is found to have a glucose of 474, but repeat checks have been 116 and 253, respectively. His lactate was 3.1 and a repeat 3 hours later was 2.7. The patient is COVID negative. Two blood cultures were obtained with results pending. Culture of the fluid obtained from the lancing and draining has also been sent for culture with results pending. IMPRESSION: It is unclear why this patient is continuing to have a problem with cellulitis since it was reportedly healed the first time. Clinically, this appears to coincide with a diagnosis of cellulitis. A CT of his chest will be obtained to look for a fluid collection beyond what was already drained. If this is the case, the patient will be taken to the operating room for more extensive drainage. If the CT shows no fluid accumulation, the patient will be sent home with an antibiotic regimen and instructions to apply warm compresses. The patient understood this plan and is in agreement with it. He had no questions at this time. Given his initial blood glucose, it is likely his diabetes is not well controlled. It is possible this is contributing to the development of recurrent abscesses. Job ID: [id number] [id number]
[2020-08-29 06:41] LABS: Phosphorus 3.9 mg/dL (2.3-4.7)
[2020-08-29 06:46] LABS: Anion Gap 11 mmol/L (10-20); BUN (Urea Nitrogen) 7 mg/dL (8.9-20.6); Calc. Creatinine Clearance 128 mL/min (70-130); Carbon Dioxide 30 mmol/L (22-29); Chloride 98 mmol/L (98-107); Glucose 240 mg/dL (70-105); Magnesium 1.7 mg/dL (1.6-2.6); Potassium 3.9 mmol/L (3.5-5.1); Sodium 135 mmol/L (136-145)
[2020-08-29] MEDS ORDERED: Magnesium 2 GM/50 ML 2 GM in Premix Bag 1 BAG IVPB SCH (07:45)
[2020-08-29] MEDS ORDERED: Fentanyl 250 MCG/5 ML VIAL ONE (08:32)
[2020-08-29] MEDS ORDERED: Midazolam HCl 2 mg/2 ml Vial ONE (09:09)
[2020-08-29] MEDS ORDERED: Vancomycin 1 GM/200 ML BAG ONE (09:10)
[2020-08-29] MEDS ORDERED: Ketorolac Tromethamine 30 MG/ML VIAL ONE (09:35)
[2020-08-29] MEDS ORDERED: PROPOFOL 200 MG/20 ML VIAL ONE (09:35)
[2020-08-29] MEDS ORDERED: Ondansetron PF 4 MG/2 ML Vial ONE (09:35)
[2020-08-29] MEDS ORDERED: diphenhydrAMINE 50 MG/ML VIAL ONE (09:35)
[2020-08-29] MEDS ORDERED: HYDROmorphone 2 MG/ML VIAL SLOW IVP PRN (10:21)
[2020-08-29] MEDS ORDERED: Ondansetron HCl/PF 4 MG/2 ML Vial IVP PRN (10:21)
[2020-08-29] MEDS ORDERED: Promethazine HCl 25 MG/ML VIAL SLOW IVP PRN (10:21)
[2020-08-29] MEDS ORDERED: Morphine Sulfate 2 MG/ML SYRINGE SLOW IVP PRN (10:21)
[2020-08-29] MEDS ORDERED: Promethazine HCl 25 MG/ML VIAL IM PRN (10:21)
[2020-08-29] MEDS ORDERED: Meperidine HCl/PF 25 MG/ML VIAL SLOW IVP PRN (10:21)
[2020-08-29] MEDS ORDERED: PACU-Morphine 4MG/ML VIAL SLOW IVP PRN (10:21)
--- NOTE | 2020-08-29 10:38 | OP ---
DATE OF PROCEDURE: 08/29/2020 PREOPERATIVE DIAGNOSIS: Multiple left chest wall abscesses. POSTOPERATIVE DIAGNOSIS: Complex 12 x 9 cm left chest wall abscesses. SURGERY PERFORMED: Excisional debridement and drainage of multiple left chest wall abscesses. ANESTHESIA: General endotracheal. ESTIMATED BLOOD LOSS: 50 mL. FLUIDS GIVEN: 700 mL of crystalloids. COUNTS: Sponge and instrument counts were verified as correct x2. COMPLICATIONS: None apparent at the time of operation. INDICATIONS FOR OPERATION: This is a 40-year-old man, who presented with 1 month history of worsening left chest wall purulent drainage on a painful mass. This was previously incised and drained with oral antibiotics, which had failed to resolve this. Clinical and radiographic examination was consistent with multiple multiseptated left chest wall abscesses, for which the patient was brought to the operating room for excisional debridement and drainage. Findings are consistent with multiple septated left chest wall abscesses down to pectoralis muscle. DESCRIPTION OF PROCEDURE: Informed consent was obtained from the patient, who was brought to the operating room and placed in a supine position. Following general anesthesia, the anterior chest wall sterilely prepped and draped in the usual fashion. We attended to the left-sided flocculent mass, which was opened and large abscess cavity was entered. I used the Yankauer suction catheter to bluntly debride the abscesses, evacuating large amount of pus and necrotic debris. Some fibrinous tissues which were nonviable were also sharply debrided using Metzenbaum scissors. The abscess cavity was then copiously irrigated with saline. I turned my attention to the medial mass, which was also opened and cavity was entered, but there was no connection between these two cavities. The septations were broken down using a Yankauer catheter, evacuating the necrotic debris and purulent pus. All the necrotic, fibrinous tissues were sharply debrided again using Metzenbaum scissors. The abscess cavity was copiously irrigated with saline. The abscess cavities were individually packed using sterile Kerlix sponge. This was then covered with 4 x 4 and ABD pad. The patient tolerated the procedure without any apparent complication and was returned to recovery room in satisfactory condition. Job ID: [id number]
[2020-08-29] MEDS: Famotidine 20 MG TAB PO SCH ×2 (11:11→21:00)
[2020-08-29] MEDS: Polyethylene Glycol 3350 17 GM Packet PO SCH (11:12)
[2020-08-29] MEDS: HumaLOG 300 UNITS/3 ML VIAL SC PRN ×2 (11:14→17:35)
[2020-08-29] MEDS: Insulin Glargine 10 UNITS in Pre-Filled Syringe 1 EACH SC SCH (12:39)
--- NOTE | 2020-08-29 16:45 | PDOC.HOSPP ---
- Subjective Encounter Date: 08/29/20 Encounter Time: 15:30 Subjective: doing well, no c/o at this time' cu +ve for MRSA. s/p I& D of chest wall abscess - Objective Vital Signs & Weight: Vital Signs (12 hours) Temp Pulse Resp BP Pulse Ox 08/29/20 12:30 97.8 F 81 20 117/81 98 08/29/20 11:10 97.5 F L 73 20 161/98 H 97 08/29/20 08:00 97.9 F 77 14 142/89 H 99 08/29/20 07:50 99 08/29/20 05:49 98.1 F 76 16 135/88 100 Weight Admit Weight 149 lb 14.4 oz Weight 149 lb 14.629 oz I&O: 08/28/20 08/29/20 08/30/20 06:59 06:59 06:59 Intake Total 1490 Balance 1490 Result Diagrams: 08/29/20 06:07 08/29/20 06:07 Additional Labs: Accuchecks 08/29/20 08/29/20 08/29/20 16:06 11:14 05:46 POC Glucose 459 H 230 H 226 H 08/28/20 08/28/20 20:57 15:48 POC Glucose 164 H 357 H Hospitalist ROS - Medication Medications: Active Medications Generic Name Dose Route Start Last Admin Trade Name Freq PRN Reason Stop Dose Admin Hydrocodone Bitart/Acetaminophen 1 tab 08/28/20 05:18 08/28/20 14:00 Hydrocodone/Acetaminophen 5/325 Mg Tablet PO 1 tab Q4H PRN Administration Moderate Pain (4-6) Enoxaparin Sodium 40 mg 08/28/20 21:00 08/28/20 21:22 Enoxaparin Sodium 40 Mg/0.4 Ml Syringe SC 40 mg 2100 CECY Administration Famotidine 20 mg 08/28/20 09:00 08/29/20 11:11 Famotidine 20 Mg Tab PO 20 mg BID CECY Administration Clindamycin Phosphate/Dextrose 50 mls @ 100 mls/hr 08/28/20 06:00 08/29/20 13:40 600 mg/ Device IVPB 50 mls Q8HR CECY Administration Insulin Glargine 10 units/ 0.1 mls @ 0 mls/hr 08/28/20 09:00 08/29/20 12:39 Miscellaneous Medication SC 0.1 mls QAM CECY Administration Insulin Human Lispro 0 units 08/28/20 05:23 08/29/20 11:14 Humalog 300 Units/3 Ml Vial SC 4 unit .MODERATE SLIDING SC PRN Administration Moderate Correctional Scale Morphine Sulfate 2 mg 08/28/20 05:18 08/28/20 21:19 Morphine 2 Mg/Ml Vial SLOW IVP 2 mg Q4H PRN Administration severe pain 4-10 Polyethylene Glycol 17 gm 08/28/20 09:00 08/29/20 11:12 Polyethylene Glycol 3350 17 Gm Packet PO 17 gm DAILY CECY Administration Hospitalist Exam Vitals: Vital Signs (12 hours) Temp Pulse Resp BP Pulse Ox 08/29/20 12:30 97.8 F 81 20 117/81 98 08/29/20 11:10 97.5 F L 73 20 161/98 H 97 08/29/20 08:00 97.9 F 77 14 142/89 H 99 08/29/20 07:50 99 08/29/20 05:49 98.1 F 76 16 135/88 100 Weight Admit Weight 149 lb 14.4 oz Weight 149 lb 14.629 oz General Appearance: NAD, awake alert Eye: PERRL ENT: normocephalic atraumatic Neck: supple Heart: RRR Respiratory: CTAB, normal chest expansion Gastrointestinal: soft, normal bowel sounds Hosp A/P - Plan # chest wall abscesses and purulent cellulitis # sepsis patient was treated here 2 months ago for chest wall cellulitis and sepsis, now reported that the pain and symptoms have returned. treated with vancomycin and zosyn and keflex at that time, never quite improved and got worse. in ED, rash concerning for recurrent cellulitis. wbc 5.5, na 131. glucose 474., lactic acid 3.1. in ED, abscesses drained x2, patient admitted for further workup and care. - admit to floor - start clindamycin - consult general surgery, wound care - await cultures # DM - he has DM and reports taking 15 units insulin a day, unsure if he is a good historian in this regard, uncontrolled - start moderate SSI and 10 units long acting a day, monitor ACHS # alcohol abuse - he drinks 5-6 drinks per day. monitor for signs of withdrawal Staph aureus bacteremia -2:01 blood cultures positive -possible contaminant -Repeat the blood culture for follow-up -Starting him vancomycin given MRSA -We will DC the Clinda[aS we are starting him on Vanco] and add Zosyn -ID consult placed -Echo to rule out vegetation given staph aureus bacteremia
[2020-08-29] MEDS ORDERED: VANCOMYCIN 1.75 GM/350 ML BAG 1.75 GM in Premix Bag 1 BAG IVPB SCH (17:00)
[2020-08-29] MEDS: Piperacillin/Tazobactam 3.375 GM in Sodium Chloride 0.9% 100 ML IVPB SCH (17:33)
[2020-08-29] MEDS: HYDROcodone/Acetaminophen 5/325 mg Tablet PO PRN ×2 (17:39→23:22)
[2020-08-29] MEDS: Enoxaparin Sodium 40 MG/0.4 ML SYRINGE SC SCH (20:59)
[2020-08-29] MEDS ORDERED: Vancomycin 1 GM in Premix Bag 1 BAG IVPB SCH (21:00)
[2020-08-29] MEDS: VANCOMYCIN 1.75 GM/350 ML BAG 1.75 GM in Premix Bag 1 BAG IVPB SCH (21:08)
--- NOTE | 2020-08-29 22:54 | CON ---
DATE OF CONSULTATION: 08/29/2020 REASON: Bacteremia, MRSA, soft tissue infection. HISTORY OF PRESENT ILLNESS: 40-year-old, history of type 2 diabetes and two episodes of UTI in the past, the second one with pyelonephritis in December 2017. In May 2020, he came in with pain in the right anterior chest, skin with erythema and warmth. The assessment by the hospitalist was uncontrolled diabetes, possible cellulitis in chest wall. He was given vancomycin and Zosyn. Two sets of blood cultures were no growth in 5 days. He was discharged on June 06 with improvement. He was sent home on cephalexin and initially improved and then a week and a half ago he started noticing recrudescence and extension towards the left side in the anterior chest area. This time, he had quite extensive areas of inflammatory change in the anterior chest, soft tissue/skin. There were 2 separate areas or at least on the surface, they appear separate, one was right above the xiphoid process, the second one was almost under the left nipple. Today, the patient had surgical debridement by Dr. Nicole and under general anesthesia, the areas were opened up. A large abscess cavity was entered. The abscesses were debrided evacuating a large amount of necrotic debris and pus. The abscess cavity was then copiously irrigated. The mass above the xiphoid did not seem to be connected to the othercavity. Currently, he appears well. He denies any headaches, visual symptoms, sore throat, odynophagia, or dysphagia. No cough or sputum production. No dyspnea. No abdominal pain or diarrhea. No genitourinary symptoms. No joint symptoms. No neurological symptoms. PAST MEDICAL HISTORY: Type 2 diabetes, UTI with one episode of pyelonephritis with bacteremia on a recent admission for what in retrospect was just the beginning of this process. ALLERGIES: NONE. SOCIAL HISTORY: Works with [employer]. Lives in [place]. Never smoker. FAMILY HISTORY: Diabetes type 2, coronary artery disease. CURRENT MEDICATIONS: 1. Vancomycin. 2. Clindamycin. PHYSICAL EXAMINATION: VITAL SIGNS: T-max 98.1, blood pressure 117/81, pulse 81, respirations 20, O2 saturation 98. SKIN: Shows the extensive area of cutaneous abscess in the anterior chest as described above. Those were drained by Dr. Nicole recently. Peripheral IV access. HEENT: Ocular movements conjugate. Oral cavity normal. NECK: Supple. LUNGS: Symmetric. Clear breath sounds. HEART: S1, S2. Regular rate without murmurs. No S3 or S4. ABDOMEN: Soft. Not distended or tender. No ascites. No bladder distention. No joint inflammatory activity. No edema. Pulses 1+ in dorsalis pedis. NEURO: Nonfocal including cognitive function. LABORATORY DATA: White cell count is 5.5, now 3.6; hemoglobin 12.9; platelets 221 with normal differential. Creatinine 0.73. Liver profile normal. Albumin 3.9. SARS-CoV-2 was not detected. We have one set of blood cultures from this admission out of two positive for MRSA and then we have Staph aureus which is going to be the same organism. Full susceptibility is pending. 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 This is the same process that started in June and now it has extended and recrudesced. He has had proper surgical debridement and we will need at least 2 weeks of IV antimicrobial therapy with vancomycin or daptomycin. Other sites of involvement including the spine, lungs, endocardium are not apparent at this time. Job ID: [id number]
[2020-08-30] MEDS: Piperacillin/Tazobactam 3.375 GM in Sodium Chloride 0.9% 100 ML IVPB SCH ×3 (01:15→17:16)
[2020-08-30] MEDS: HumaLOG 300 UNITS/3 ML VIAL SC PRN ×2 (05:27→17:15)
[2020-08-30] MEDS: HYDROcodone/Acetaminophen 5/325 mg Tablet PO PRN ×3 (05:30→20:11)
--- NOTE | 2020-08-30 05:58 | PRG ---
DATE OF SERVICE: 08/29/2020 SUBJECTIVE: The patient was seen this evening during rounds. He was lying in bed, resting comfortably and asleep with no signs of acute distress. Nursing reports no acute events. The patient is postop day 0, status post excisional debridement and drainage of multiple left chest wall abscesses. OBJECTIVE: VITAL SIGNS: Temperature 98.1, pulse 80, respirations 17, oxygen saturation 98% on room air, and blood pressure 117/71. GENERAL: Well-appearing, middle-aged male, lying in bed, resting comfortably and asleep with no signs of acute distress. PULMONARY: Equal chest rise and fall. No signs of acute respiratory distress. ASSESSMENT: Postop day 0, status post excisional debridement and drainage of multiple recurrent left-sided chest wall abscesses, positive for MRSA. PLAN: Continue current diet and pain regimen. Continue IV vancomycin. Follow up Dr. Santa' recommendations for antibiotic treatment. Wound Care to evaluate the patient. Dr. Nicole will see the patient again later in the morning. Job ID: [id number]
[2020-08-30 07:27] LABS: Hemoglobin 11.7 g/dL (14.0-18.0); Mean Corpuscular HGB CONC 34.3 g/dL (32.0-36.0); Mean Corpuscular Hemoglobin 32.1 pg (27.0-31.0); Mean Corpuscular Volume 93.6 fL (78.0-98.0); Mean Platelet Volume 7.7 fL (7.4-10.4); Platelet Count 203 thou/uL (130-400); RBC Distribution Width 11.8 % (11.5-14.5); Red Blood Cell (RBC) Count 3.65 mill/uL (4.70-6.10); White Blood Cell (WBC) Count 3.9 thou/uL (4.8-10.8)
[2020-08-30 07:44] LABS: Anion Gap 10 mmol/L (10-20); BUN (Urea Nitrogen) 7 mg/dL (8.9-20.6); Calc. Creatinine Clearance 123 mL/min (70-130); Calcium 8.9 mg/dL (7.8-10.44); Carbon Dioxide 28 mmol/L (22-29); Chloride 103 mmol/L (98-107); Glucose 187 mg/dL (70-105); Magnesium 1.8 mg/dL (1.6-2.6); Sodium 137 mmol/L (136-145)
[2020-08-30 09:05] LABS: Band 3 % (5-11); Eosinophils 4 % (0-10); Lymphocytes 25 % (21-51); MDiff Complete? YES; Monocytes 1 % (0-10); Neutrophil 62 % (42-75); Platelet Morphology Comment Appears Adequate; Polychromasia SLIGHT = 2-3 cells (100X) (0-2/hpf); Reactive Lymphocytes 4 % (0-10)
[2020-08-30] MEDS: Insulin Glargine 10 UNITS in Pre-Filled Syringe 1 EACH SC SCH (09:15)
[2020-08-30] MEDS: HumaLOG 300 UNITS/3 ML VIAL SC SCH ×3 (09:15→17:14)
[2020-08-30] MEDS: Famotidine 20 MG TAB PO SCH ×2 (09:15→20:10)
[2020-08-30] MEDS: Polyethylene Glycol 3350 17 GM Packet PO SCH (09:15)
[2020-08-30] MEDS: VANCOMYCIN 1.75 GM/350 ML BAG 1.75 GM in Premix Bag 1 BAG IVPB SCH ×2 (09:16→21:04)
[2020-08-30] MEDS ORDERED: Magnesium 2 GM/50 ML 2 GM in Premix Bag 1 BAG IVPB SCH (12:30)
--- NOTE | 2020-08-30 14:49 | PDOC.HOSPP ---
- Subjective Encounter Date: 08/30/20 Encounter Time: 12:10 Subjective: Patient seen he does not have any acute complaints. Discussed with him care plan and possible the long-term IV antibiotic infusion with the home health - Objective Vital Signs & Weight: Vital Signs (12 hours) Temp Pulse Resp BP Pulse Ox 08/30/20 08:05 97.9 F 75 18 115/78 98 08/30/20 08:00 97 08/30/20 05:00 98.1 F 74 16 128/85 99 Weight Admit Weight 149 lb 14.4 oz Weight 149 lb 14.629 oz I&O: 08/29/20 08/30/20 08/31/20 06:59 06:59 06:59 Intake Total 1490 2830 Balance 1490 2830 Result Diagrams: 08/30/20 07:01 08/30/20 07:01 Additional Labs: Accuchecks 08/30/20 08/30/20 08/29/20 12:31 05:26 20:35 POC Glucose 98 239 H 122 H 08/29/20 08/29/20 16:06 10:50 POC Glucose 459 H 220 H Hospitalist ROS - Medication Medications: Active Medications Generic Name Dose Route Start Last Admin Trade Name Freq PRN Reason Stop Dose Admin Hydrocodone Bitart/Acetaminophen 1 tab 08/28/20 05:18 08/30/20 11:29 Hydrocodone/Acetaminophen 5/325 Mg Tablet PO 1 tab Q4H PRN Administration Moderate Pain (4-6) Enoxaparin Sodium 40 mg 08/28/20 21:00 08/29/20 20:59 Enoxaparin Sodium 40 Mg/0.4 Ml Syringe SC 40 mg 2100 CECY Administration Famotidine 20 mg 08/28/20 09:00 08/30/20 09:15 Famotidine 20 Mg Tab PO 20 mg BID CECY Administration Insulin Glargine 10 units/ 0.1 mls @ 0 mls/hr 08/28/20 09:00 08/30/20 09:15 Miscellaneous Medication SC 0.1 mls QAM CECY Administration Vancomycin HCl 1.75 gm/ Device 350 mls @ 175 mls/hr 08/29/20 22:00 08/30/20 09:16 IVPB 350 mls 1000,2200 CECY Administration Piperacillin Sod/Tazobactam 100 mls @ 200 mls/hr 08/29/20 17:00 08/30/20 09:15 Sod 3.375 gm/ Sodium Chloride IVPB 100 mls 0100,0900,1700 CECY Administration Magnesium Sulfate 2 gm/ Device 50 mls @ 50 mls/hr 08/30/20 12:30 08/30/20 14:09 IVPB 08/30/20 16:00 50 mls NOW CECY Administration Insulin Human Lispro 0 units 08/29/20 19:00 08/30/20 05:27 Humalog 300 Units/3 Ml Vial SC 6 unit .AGGRESSIVE SLIDING PRN Administration AGGRESSIVE SLIDING SCALE Protocol Insulin Human Lispro 5 units 08/30/20 07:30 08/30/20 11:26 Humalog 300 Units/3 Ml Vial SC 5 unit AC CECY Administration Morphine Sulfate 2 mg 08/28/20 05:18 08/28/20 21:19 Morphine 2 Mg/Ml Vial SLOW IVP 2 mg Q4H PRN Administration severe pain 4-10 Polyethylene Glycol 17 gm 08/28/20 09:00 08/30/20 09:15 Polyethylene Glycol 3350 17 Gm Packet PO 17 gm DAILY CECY Administration Hospitalist Exam Vitals: Vital Signs (12 hours) Temp Pulse Resp BP Pulse Ox 08/30/20 08:05 97.9 F 75 18 115/78 98 08/30/20 08:00 97 08/30/20 05:00 98.1 F 74 16 128/85 99 Weight Admit Weight 149 lb 14.4 oz Weight 149 lb 14.629 oz General Appearance: NAD, awake alert Eye: PERRL ENT: normocephalic atraumatic Neck: supple Heart: RRR, normal peripheral pulses Respiratory: CTAB, normal chest expansion Gastrointestinal: soft, normal bowel sounds Extremities: no cyanosis, 1+ LE edema Neurological: cranial nerve grossly intact, no focal deficits Psychiatric: A&O x 3 Hosp A/P - Plan # chest wall abscesses and purulent cellulitis # sepsis patient was treated here 2 months ago for chest wall cellulitis and sepsis, now reported that the pain and symptoms have returned. treated with vancomycin and zosyn and keflex at that time, never quite improved and got worse. in ED, rash concerning for recurrent cellulitis. wbc 5.5, na 131. glucose 474., lactic acid 3.1. in ED, abscesses drained x2, patient admitted for further workup and care. - consult general surgery, wound care---they are following with - await cultures # DM - he has DM and reports taking 15 units insulin a day, unsure if he is a good historian in this regard, uncontrolled - start moderate SSI and 10 units long acting a day, monitor ACHS # alcohol abuse - he drinks 5-6 drinks per day. monitor for signs of withdrawal Staph aureus bacteremia -2:01 blood cultures positive -possible contaminant -Repeat the blood culture for follow-up -Starting him vancomycin given MRSA -We will DC the Clinda[aS we are starting him on Vanco] and add Zosyn -ID consult--he needs 2 weeks of IV antibiotic with vancomycin or daptomycin. -Echo to rule out vegetation given staph aureus bacteremia EF 55% and no vegetation. Blood culture was positive on I am going to repeat today, culture remains negative x48 hours then PICC line placement likely on Wednesday.
--- NOTE | 2020-08-30 16:18 | PDOC.DS.DS ---
Provider Date of Admission: 08/27/20 21:51 Admitting Provider: Tru Gary MD Primary Care Physician: [facility] Clinic Course Hospital Course: 40YOM presented with chest wall abscesses and purulent cellulitis # sepsis d/e above patient was treated here 2 months ago for chest wall cellulitis and sepsis, now reported that the pain and symptoms have returned. treated with vancomycin and zosyn and keflex at that time, never quite improved and got worse. in ED, rash concerning for recurrent cellulitis. wbc 5.5, na 131. glucose 474., lactic acid 3.1. in ED, abscesses drained x2, patient admitted for further workup and care. surgery adn wound care followed # DM - he has DM and reports taking 15 units insulin a day, unsure if he is a go od historian in this regard, uncontrolled - start moderate SSI and 10 units long acting a day, monitor ACHS # alcohol abuse - he drinks 5-6 drinks per day. monitor for signs of withdrawal Staph aureus bacteremia -2:01 blood cultures positive -possible contaminant -Repeat the blood culture for follow-up -Starting him vancomycin given MRSA -We will DC the Clinda[aS we are starting him on Vanco] and add Zosyn -ID consult--he needs 2 weeks of IV antibiotic with vancomycin or daptomycin. -Echo to rule out vegetation given staph aureus bacteremia EF 55% and no vegetation. Blood culture was positive on I am going to repeat today, culture remains negative x48 hours then PICC line placement likely on Wednesday. annot dic today Resuscitation Status: 08/28/20 05:18 Resuscitation Status Routine Resuscitation Status: FULL: Full Resuscitation Lab Results: 08/30/20 07:01 08/30/20 07:01 Abnormal Lab Results - Last 48 hrs 08/29/20 06:07: Sodium 135 L, Carbon Dioxide 30 H, BUN 7 L 08/29/20 06:07: WBC 3.6 L, RBC 4.08 L, Hgb 12.9 L, Hct 37.7 L, MCH 31.7 H, Lymphocytes # 1.1 L 08/30/20 07:01: BUN 7 L 08/30/20 07:01: WBC 3.9 L, RBC 3.65 L, Hgb 11.7 L, Hct 34.1 L, MCH 32.1 H, Band Neuts % (Manual) 3 L Microbiology - Entire Visit 08/27/20 20:01 Venous blood - Right Hand Blood Culture - Preliminary Methicillin resistant S.aureus 08/27/20 20:15 Chest - Pending Bacterial Culture - Final Methicillin resistant S.aureus 08/27/20 20:02 Venous blood - Left Arm Blood Culture - Preliminary NO GROWTH AT 48 HOURS Vitals: Vital Signs (12 hours) Temp Pulse Resp BP Pulse Ox 08/30/20 08:05 97.9 F 75 18 115/78 98 08/30/20 08:00 97 08/30/20 05:00 98.1 F 74 16 128/85 99 Weight Admit Weight 149 lb 14.4 oz Weight 149 lb 14.629 oz Physical Exam: The patient was seen and examined on the day of discharge. Plan Prescriptions: metFORMIN [Glucophage] 500 mg PO BID-WM 30 Days #60 tab Home Medications: Medication Instructions Recorded Confirmed Type glipiZIDE [glipiZIDE XL] 5 mg PO QAM-WM #90 tab.er.24 06/06/20 08/28/20 Rx metFORMIN [Glucophage] 500 mg PO BID-WM 30 Days #60 tab 08/30/20 Rx Allergies: No Known Allergies Allergy (Verified 08/28/20 08:21) Discharge Instructions:: follow with [facility] parisa edmondson Activity:: Activity as Tolerated Nourishment:: Heart Healthy Diet Referrals: [facility] [Primary Care Provider] - Disposition: HOME Quality CORE MEASURES:: N/A
--- NOTE | 2020-08-30 16:18 | SPC ---
Left upper extremity PICC sonographic guided HISTORY: Chest wall infection. FINDINGS: After explaining the procedure and answering all questions, the left upper extremity was pr epped and draped in usual sterile fashion. Sterile technique, buffered local anesthesia, sonographic guidance, and a 22-gauge needle were used t o carefully access the left basilic vein. Standard technique was used to place the tip of a 5 Syrian single lumen PICC so that the tip lies at the level of the right atrium. Catheter was flushed and secured externally. Patient tolerated the procedure well and was returned in unchanged condition. Fluoroscopy time 0 seconds. IMPRESSION : Left upper extremity PICC is ready for use.
[2020-08-30] MEDS: Enoxaparin Sodium 40 MG/0.4 ML SYRINGE SC SCH (20:10)
[2020-08-31] MEDS: Piperacillin/Tazobactam 3.375 GM in Sodium Chloride 0.9% 100 ML IVPB SCH ×2 (01:20→08:52)
[2020-08-31] MEDS: HYDROcodone/Acetaminophen 5/325 mg Tablet PO PRN (05:39)
[2020-08-31] MEDS: HumaLOG 300 UNITS/3 ML VIAL SC PRN ×2 (05:40→13:06)
[2020-08-31] MEDS: Famotidine 20 MG TAB PO SCH (08:52)
[2020-08-31] MEDS: Polyethylene Glycol 3350 17 GM Packet PO SCH (08:52)
[2020-08-31] MEDS: HumaLOG 300 UNITS/3 ML VIAL SC SCH ×3 (08:53→16:57)
[2020-08-31] MEDS: VANCOMYCIN 1.75 GM/350 ML BAG 1.75 GM in Premix Bag 1 BAG IVPB SCH ×2 (08:54→10:22)
[2020-08-31] MEDS: Insulin Glargine 10 UNITS in Pre-Filled Syringe 1 EACH SC SCH (09:06)
[2020-08-31 11:37] VITALS: BP 128/82; TEMP 98.2
[2020-08-31] MEDS: Morphine 2 MG/ML VIAL SLOW IVP PRN (13:08)
[2020-08-31] MEDS ORDERED: VANCOMYCIN 1.25 GM/250 ML BAG 1.25 GM in Premix Bag 1 BAG IVPB SCH (18:00)
--- NOTE | 2020-08-31 20:42 | PDOC.BPN ---
- Brief Progress Note Encounter Date: 08/31/20 Encounter Time: 18:00 The patient was seen on the day of discharge. He had no fevers, chills, chest pain, cough or SOB Physical exam: Gen: alert, awake, oriented times three CV: RRR, no murmurs, rubs, gallops Chest: chest abscess s/p drainage with packing in place, no purulence noted or surrounding cellulitis Lungs: CTAB Abdomen: +BS, soft, nontender, nondistended Extremities: no edema This is a 40 year old male who presented with chest wall abscess, found to have MRSA bacteremia MRSA bacteremia Chest wall abscess s/p debridement - patient will be on IV daptomycin until 09/11. He has PICC line in place, repeat blood cultures were negative. He will be discharged and get his next daptomycin dose tomorrow at 2:00 pm in the ER - He should get outpatient wound care and f/u with PCP and surgeon Dr. Nicole. He needs weekly labs. ECHO unremarkable Leukopenia Anemia - continue outpatient f/u with PCP Alcohol abuse - no signs of withdrawal, outpatient cessation DM - continue home meds
--- NOTE | 2020-09-02 05:06 | PQF ---
CLINICAL DOCUMENTATION CLARIFICATION FORM: Dear : Andrei Nicole Date / Time: 09/02/2020 Please exercise your independent, professional judgment in responding to the clarification form. Clinical indicators are provided on the bottom of this form for your review In your clinical opinion based on clinical findings below, can you please identify the depth of chest wall Excisional debridement: Please check appropriate box(es): [ x ] Skin [ x ] Subcutaneous [x ] Fascia [ x ] Muscle [ ] Tendon [ ] Bone [ ] Other procedure diagnosis [ ] Unable to determine Physician Signature: Date/Time: For continuity of documentation, please document condition throughout progress notes and discharge summary. Thank You To be completed by CDI/Coding staff for physician review: Present Clinical Indicators - Signs / Symptoms / Labs Results and Location in Medical Record [x] Findings are consistent with multiple septated left chest wall abscess down to pectoralis muscle Operative report 08/29 Dr Nicole [x] I used Yankauer suction catheter to bluntly debride the abscesses, evacuating large amount of pus and necrotic debris Operative report 08/29 Dr Nicole [x] All necrotic, fibronous tissues escoto sharply debriedd again using metzenbaum scissors Operative report 08/29 Dr Nicole [x] Hypodense focus in the left pectoralis major muscle which may represent a focal hematoma versus phlegmon measuring 2.2 x 3.[address] 08/28 Dr. Snowden Present Risk Factors Results and Location in Medical Record [x] Complex 12x 9 cm left chest wall abscess Operative report 08/29 Dr Nicole [x] DM Operative report 08/29 Dr Nicole [x] cellulitis Operative report 08/29 Dr Nicole Present Treatments Results and Location in Medical Record [x] Excisional debridement and drainage of multiple left chest wall abscess Operative report 08/29 Dr Nicole [employer] Field Technician Signature: Carolee Bricenonicolás Phone #: ext [phone] Date/Time: 09/02/2020 This is a permanent part of the Medical Record [facility]
== END 2020-08-31 17:48 | disposition home or self-care (01) | DRG 854 ==
LOC: ERS 19:20 → T4-A 21:40 → ERHOLD 21:51 → T4-A 08-28 13:49
PROVIDERS: ADMIT Internal Medicine; ATTEND Internal Medicine
PROC: 0J960ZZ Drainage of Chest Subcutaneous Tissue and Fascia, Open Approach (ICD-10-PCS; 2020-08-27)
PROC: 0KBJ0ZZ Excision of Left Thorax Muscle, Open Approach (ICD-10-PCS; principal; 2020-08-29)
PROC: 02H633Z Insertion of Infusion Device into Right Atrium, Percutaneous Approach (ICD-10-PCS; 2020-08-30)
PROC: B548ZZA Ultrasonography of Superior Vena Cava, Guidance (ICD-10-PCS; 2020-08-30)
DX: A41.02 Sepsis due to Methicillin resistant Staphylococcus aureus (principal); L02.213 Cutaneous abscess of chest wall; L03.313 Cellulitis of chest wall; E11.65 Type 2 diabetes mellitus with hyperglycemia; Z20.822 Contact with and (suspected) exposure to COVID-19; F10.10 Alcohol abuse, uncomplicated; D64.9 Anemia, unspecified; Z83.3 Family history of diabetes mellitus; Z79.899 Other long term (current) drug therapy; Z79.84 Long term (current) use of oral hypoglycemic drugs; Z87.440 Personal history of urinary (tract) infections; Z82.49 Family history of ischemic heart disease and other diseases of the circulatory system
CPT/HCPCS: 10060; 36415; 36416; 36569; 71260; 80048; 80053; 80202; 83605; 83735; 84100; 85007; 85025; 85027; 86850; 86900; 86901; 87040; 87070; 87077; 87149; 87186; 87205; 87635; 93306; 96365; 96366; 96375; C1751; J1200; J1650; J1815; J1885; J2250; J2270; J2405; J2543; J2704; J3010; J3370; J3475; J3490; Q9967; U0003; U0005

== ENCOUNTER 2021-01-28 13:50 | Emergency (ER) | payer SELFPAY | END 2021-01-28 15:02 | disposition home or self-care (01) | LOC: ERS 13:50 | DX: S62.613A Displaced fracture of proximal phalanx of left middle finger, initial encounter for closed fracture (principal); E11.9 Type 2 diabetes mellitus without complications; Z79.84 Long term (current) use of oral hypoglycemic drugs; W19.XXXA Unspecified fall, initial encounter | CPT/HCPCS: 29125 ==

== ENCOUNTER 2024-03-29 10:35 | Inpatient (IN) | payer SELFPAY ==
[2024-03-29] MEDS ORDERED: Sodium Chloride 0.9% 100 ML ONE (11:02)
[2024-03-29] MEDS ORDERED: Piperacillin/Tazobactam 4.5 GM VIAL ONE (11:02)
[2024-03-29] MEDS ORDERED: HYDROcodone/Acetaminophen 5/325 mg Tablet ONE (11:02)
[2024-03-29 11:18] LABS: #Basophils 0.06 10x3/uL (0.0-0.2); #Eosinphils Less than 0.03 10x3/uL (0.0-0.7); %Basophils 0.5 % (0.0-1.0); %Eosinophils 0.2 % (0.0-10.0); %Lymphocytes 9.5 % (21.0-51.0); %Monocytes 7.9 % (0.0-10.0); %Neutrophils 81.6 % (42.0-75.0); Hematocrit 34.7 % (42.0-52.0); Hemoglobin 12.2 g/dL (14.0-18.0); Mean Corpuscular HGB CONC 35.2 g/dL (32.0-36.0); Mean Corpuscular Hemoglobin 32.2 pg (27.0-31.0); Mean Corpuscular Volume 91.6 fL (78.0-98.0); Mean Platelet Volume 10.2 fL (7.4-10.4); Platelet Count 271 10x3/uL (130-400); RBC Distribution Width 11.8 % (11.5-14.5); Red Blood Cell (RBC) Count 3.79 mill/uL (4.70-6.10)
[2024-03-29 11:49] LABS: ALT (SGPT) 14 U/L (8-55); AST (SGOT) 12 U/L (5-34); Alkaline Phosphatase 82 U/L (40-110); Anion Gap 15 mmol/L (10-20); BUN (Urea Nitrogen) 6 mg/dL (8.9-20.6); Bilirubin, Total 0.4 mg/dL (0.2-1.2); Calc. Creatinine Clearance 0 mL/min (70-130); Calcium 9.2 mg/dL (7.8-10.44); Carbon Dioxide 20 mmol/L (22-29); Chloride 93 mmol/L (98-107); Estimated GFR 112; Globulin 4.5 g/dL (2.4-3.5); Glucose 430 mg/dL (70-105); Protein, Total 7.5 g/dL (6.0-8.3); Sodium 124 mmol/L (136-145)
[2024-03-29] MEDS ORDERED: Dextrose 50% Abboject 50 ML SYRINGE SLOW IVP PRN (13:51)
[2024-03-29] MEDS ORDERED: Dextrose 5% in Water 1,000 ML IV PRN (13:51)
[2024-03-29] MEDS ORDERED: Glucagon 1 MG/ML KIT IM PRN (13:51)
[2024-03-29] MEDS ORDERED: Lorazepam 1 MG TAB PO PRN (13:55)
[2024-03-29] MEDS ORDERED: Ondansetron ODT 4 MG TAB PO PRN (13:55)
[2024-03-29] MEDS ORDERED: Electrolyte Replacement Protocol 1 EACH FS SCH (14:00)
[2024-03-29] MEDS ORDERED: Electrolyte Replacement Protocol FS PRN (14:30)
[2024-03-29] MEDS: Insulin Glargine 30 UNITS/0.3 ML VIAL SC SCH (14:58)
[2024-03-29 15:01] LABS: Lactic Acid 1.05 mmol/L (0.5-2.2)
[2024-03-29] MEDS: Vancomycin (BATCH) 1.75 GM in Premix 1 BAG IVPB SCH (15:06)
[2024-03-29] MEDS: traMADol HCl 50 MG TAB PO PRN (15:15)
[2024-03-29 15:41] VITALS: BMI 24.2
[2024-03-29] MEDS: Multivitamins, Adult 10 ML, Folic Acid 1 MG, Thiamine HCl 100 MG, Admixture Fee 1 EACH ... IV SCH (16:00)
[2024-03-29] MEDS: Piperacillin/Tazobactam 3.375 GM in Sodium Chloride 0.9% 100 ML IVPB SCH (16:46)
[2024-03-29] MEDS: Insulin Lispro 100 UNIT/ML 10 ML VIAL SC PRN (16:57)
[2024-03-29] MEDS: Vancomycin (BATCH) 1.5 GM in Premix 1 BAG IVPB SCH (23:19)
[2024-03-30 04:35] LABS: #Basophils 0.04 10x3/uL (0.0-0.2); %Basophils 0.5 % (0.0-1.0); %Eosinophils 0.5 % (0.0-10.0); %Lymphocytes 10.8 % (21.0-51.0); %Neutrophils 74.8 % (42.0-75.0); Hematocrit 33.9 % (42.0-52.0); Hemoglobin 11.6 g/dL (14.0-18.0); Mean Corpuscular HGB CONC 34.2 g/dL (32.0-36.0); Mean Corpuscular Hemoglobin 31.7 pg (27.0-31.0); Mean Corpuscular Volume 92.6 fL (78.0-98.0); Mean Platelet Volume 9.8 fL (7.4-10.4); Platelet Count 264 10x3/uL (130-400); RBC Distribution Width 11.8 % (11.5-14.5); Red Blood Cell (RBC) Count 3.66 mill/uL (4.70-6.10)
[2024-03-30 04:43] LABS: Hemoglobin A1c 9.5 % (4.0-6.0)
[2024-03-30 05:02] LABS: Vancomycin, Random 17.3 ug/mL (See Comment)
[2024-03-30 05:05] LABS: Anion Gap 10 mmol/L (10-20); BUN (Urea Nitrogen) 7 mg/dL (8.9-20.6); Calc. Creatinine Clearance 137 mL/min (70-130); Calcium 8.8 mg/dL (7.8-10.44); Carbon Dioxide 25 mmol/L (22-29); Chloride 100 mmol/L (98-107); Estimated GFR 119; Glucose 108 mg/dL (70-105); Potassium 3.6 mmol/L (3.5-5.1); Sodium 131 mmol/L (136-145)
[2024-03-30] MEDS: Folic Acid 1 MG TAB PO SCH (08:43)
[2024-03-30] MEDS: Enoxaparin 40 MG (0.4 mL) SYRINGE SC SCH (08:43)
[2024-03-30] MEDS: Insulin Glargine 30 UNITS/0.3 ML VIAL SC SCH (08:43)
[2024-03-30] MEDS: Multivit, Therapeutic 1 TAB PO SCH (08:43)
[2024-03-30 10:22] VITALS: BMI 24.2
[2024-03-30] MEDS ORDERED: Magnevist 469MG/ML 20 ML VIAL ONE (11:56)
[2024-03-30] MEDS: Vancomycin (BATCH) 1.75 GM in Premix 1 BAG IVPB SCH (13:48)
[2024-03-30] MEDS ORDERED: Lorazepam 1 MG TAB PO PRN (13:55)
[2024-03-30] MEDS: Lisinopril 10 MG TAB PO SCH (17:10)
[2024-03-30] MEDS: D5 1/2 NS w/20 mEq KCL 1,000 ML IV SCH (17:16)
[2024-03-31 06:02] LABS: Anion Gap 12 mmol/L (10-20); BUN (Urea Nitrogen) 5 mg/dL (8.9-20.6); Calc. Creatinine Clearance 140 mL/min (70-130); Calcium 8.5 mg/dL (7.8-10.44); Carbon Dioxide 24 mmol/L (22-29); Chloride 100 mmol/L (98-107); Estimated GFR 119; Glucose 206 mg/dL (70-105); Potassium 3.7 mmol/L (3.5-5.1); Sodium 132 mmol/L (136-145)
[2024-03-31] MEDS: Lisinopril 10 MG TAB PO SCH (08:51)
[2024-03-31] MEDS: Insulin Glargine 30 UNITS/0.3 ML VIAL SC SCH (09:13)
[2024-03-31] MEDS ORDERED: Lorazepam 1 MG TAB PO PRN (13:55)
[2024-03-31] MEDS ORDERED: fentaNYL PF 100 MCG/2 ML SYRINGE ONE (14:29)
[2024-03-31] MEDS ORDERED: PROPOFOL 40 ML ONE (14:29)
[2024-03-31] MEDS ORDERED: Lidocaine 2% 6 ML (Jelly) SYR ONE (14:30)
[2024-03-31] MEDS ORDERED: Ondansetron PF 4 MG/2 ML Vial ONE (14:37)
[2024-03-31] MEDS ORDERED: ePHEDrine Sulfate 50 MG/10 ML VIAL ONE (14:49)
[2024-03-31] MEDS ORDERED: fentaNYL 50 mcg/mL 1 mL Vial ONE (15:31)
[2024-03-31] MEDS: hydrALAZINE 20 MG/ML VIAL SLOW IVP SCH (15:31)
[2024-03-31] MEDS ORDERED: hydrALAZINE 20 MG/ML VIAL ONE (15:35)
[2024-03-31] MEDS: fentaNYL 50 mcg/mL 1 mL Vial SLOW IVP PRN (19:47)
[2024-04-01 05:18] LABS: Vancomycin, Random 21.4 ug/mL (See Comment)
[2024-04-01 05:19] LABS: Anion Gap 12 mmol/L (10-20); BUN (Urea Nitrogen) 5 mg/dL (8.9-20.6); Calc. Creatinine Clearance 126 mL/min (70-130); Calcium 8.5 mg/dL (7.8-10.44); Carbon Dioxide 24 mmol/L (22-29); Chloride 101 mmol/L (98-107); Estimated GFR 116; Glucose 284 mg/dL (70-105); Potassium 3.6 mmol/L (3.5-5.1); Sodium 133 mmol/L (136-145)
[2024-04-01] MEDS ORDERED: Lorazepam 0.5 MG TAB PO PRN (13:55)
[2024-04-01] MEDS: Thiamine 100 MG TAB PO SCH (14:52)
[2024-04-01] MEDS: hydrALAZINE 20 MG/ML VIAL SLOW IVP PRN (17:10)
[2024-04-01] MEDS: Cefepime 1 GM in Sodium Chloride 0.9% 100 ML IVPB SCH (21:26)
[2024-04-02 05:33] LABS: Anion Gap 12 mmol/L (10-20); BUN (Urea Nitrogen) 8 mg/dL (8.9-20.6); Calc. Creatinine Clearance 130 mL/min (70-130); Calcium 8.9 mg/dL (7.8-10.44); Carbon Dioxide 24 mmol/L (22-29); Chloride 104 mmol/L (98-107); Estimated GFR 117; Glucose 230 mg/dL (70-105); Potassium 3.8 mmol/L (3.5-5.1); Sodium 136 mmol/L (136-145)
[2024-04-02] MEDS: Cefepime 2 GM in Sodium Chloride 0.9% 100 ML IVPB SCH (20:47)
[2024-04-02] MEDS: Insulin Lispro 100 UNIT/ML 10 ML VIAL SC PRN (20:48)
[2024-04-02] MEDS: Vancomycin (BATCH) 1.25 GM in Premix 1 BAG IVPB SCH (23:49)
[2024-04-03 08:19] LABS: Vancomycin, Random 16.9 ug/mL (See Comment)
[2024-04-03] MEDS: Vancomycin 1 GM in Premix 1 BAG IVPB SCH (15:44)
[2024-04-04] MEDS: hydrALAZINE 25 MG TAB PO SCH (04:03)
[2024-04-04 07:16] LABS: Vancomycin, Random 16.6 ug/mL (See Comment)
[2024-04-04] MEDS: Insulin Glargine 30 UNITS/0.3 ML VIAL SC SCH (12:43)
[2024-04-04] MEDS: Amlodipine 10 MG TAB PO SCH (17:10)
[2024-04-04] MEDS: Acetaminophen 325 MG TAB PO PRN (17:54)
[2024-04-05] MEDS: Amlodipine 10 MG TAB PO SCH (11:05)
[2024-04-05] MEDS: Insulin Glargine 30 UNITS/0.3 ML VIAL SC SCH ×2 (18:46→19:09)
[2024-04-06 05:19] LABS: Vancomycin, Random 22.4 ug/mL (See Comment)
[2024-04-06] MEDS: Insulin Glargine 30 UNITS/0.3 ML VIAL SC SCH (08:12)
[2024-04-06 08:32] VITALS: TEMP 97.7
[2024-04-06 15:14] VITALS: BP 171/93
== END 2024-04-06 15:12 | disposition home or self-care (01) | DRG 240 ==
LOC: ERS 10:35 → MSONC 11:50
PROVIDERS: ADMIT Internal Medicine; ATTEND Internal Medicine
PROC: 0Y6M0ZC Detachment at Right Foot, Partial 3rd Ray, Open Approach (ICD-10-PCS; principal; 2024-03-31)
PROC: 0Y6M0ZD Detachment at Right Foot, Partial 4th Ray, Open Approach (ICD-10-PCS; 2024-03-31)
PROC: 0Y6M0ZF Detachment at Right Foot, Partial 5th Ray, Open Approach (ICD-10-PCS; 2024-03-31)
DX: E11.52 Type 2 diabetes mellitus with diabetic peripheral angiopathy with gangrene (principal); L03.115 Cellulitis of right lower limb; M86.9 Osteomyelitis, unspecified; E11.65 Type 2 diabetes mellitus with hyperglycemia; F10.10 Alcohol abuse, uncomplicated; Z79.899 Other long term (current) drug therapy; Z79.4 Long term (current) use of insulin; I10 Essential (primary) hypertension; E11.69 Type 2 diabetes mellitus with other specified complication; Z79.84 Long term (current) use of oral hypoglycemic drugs; E11.628 Type 2 diabetes mellitus with other skin complications
CPT/HCPCS: 36415; 36416; 80048; 80053; 80202; 82565; 83036; 83605; 85025; 87040; 88305; 88311; 96365; 96367; 97139; A9579; J0360; J0692; J1650; J1815; J2405; J2543; J2704; J3010; J3370; J3370-JW; J3411; J3480; J7042

== ENCOUNTER 2024-05-18 09:18 | Day surgery (SDC) | payer SELFPAY ==
[2024-05-17 12:16] VITALS: BMI 23.6
[2024-05-18] MEDS ORDERED: PROPOFOL 20 ML ONE (11:17)
[2024-05-18] MEDS ORDERED: Lidocaine 2% PF 5 ML VIAL ONE (11:17)
[2024-05-18] MEDS ORDERED: PHENYLEPHRINE-NS 100 MCG/ML 10 ML SYRINGE ONE (11:17)
[2024-05-18] MEDS ORDERED: EPINEPHrine 1 MG/ML VIAL ONE (11:52)
[2024-05-18] MEDS ORDERED: Bupivacaine PF 0.5% 30 ML VIAL ONE (11:52)
[2024-05-18] MEDS ORDERED: Midazolam HCl 2 mg/2 ml Vial ONE (12:30)
[2024-05-18] MEDS ORDERED: CEFAZOLIN 1 GM VIAL ONE (12:33)
[2024-05-18] MEDS ORDERED: Ketamine In 0.9 % NaCl 50 MG/5 ML SYRINGE ONE (12:35)
[2024-05-18] MEDS ORDERED: Ondansetron PF 4 MG/2 ML Vial ONE (12:37)
[2024-05-18] MEDS ORDERED: Dexamethasone 4 mg/ml Vial ONE (12:37)
[2024-05-18] MEDS ORDERED: fentaNYL PF 100 MCG/2 ML SYRINGE ONE (12:39)
== END 2024-05-18 14:59 | disposition home or self-care (01) ==
LOC: SDC 09:18
PROVIDERS: ATTEND Thoracic Surgery (Cardiothoracic Vascular Surgery)
PROC: 0H9MXZZ Drainage of Right Foot Skin, External Approach (ICD-10-PCS; principal; 2024-05-18)
DX: E11.52 Type 2 diabetes mellitus with diabetic peripheral angiopathy with gangrene (principal); I96 Gangrene, not elsewhere classified; I10 Essential (primary) hypertension; E11.65 Type 2 diabetes mellitus with hyperglycemia; N28.1 Cyst of kidney, acquired; R81 Glycosuria; F32.A Depression, unspecified; Z89.421 Acquired absence of other right toe(s); Z87.440 Personal history of urinary (tract) infections; Z91.199 Patient's noncompliance with other medical treatment and regimen due to unspecified reason
CPT/HCPCS: 36416; J0171; J0665; J0690; J1100; J2250; J2405; J2704; J3490